=== PATIENT | male | born 1950 | race Hispanic/Latino ===

== ENCOUNTER 2016-04-09 11:08 | Inpatient (IN) | payer MEDICARE ==
[~2016-04-09] VITALS: Ht 170.2 cm; Wt 72.7 kg
[2016-04-09] VITALS (13 sets, daily range): BP systolic 100–210; BP diastolic 79–129; PULSE 79–124; RESP 18–34; O2SAT 91–100
--- NOTE | 2016-04-09 11:18 | ED.REPORT ---
HPI-General Illness Date of Service Apr 09, 2016 ED Provider: Dr. John 65 year old male with a hx of COPD, current every day smoker and HTN presents to the ED via EMS due to severe SOB since this morning. EMS noted the patient to be wheezing and 86% on RA. He was given a DuoNeb and albuterol en route. He was started on supplemental oxygen. He was noted to be hypertensive, tachycardic and tachypneic en route. At home the patient has daily nebs and a rescue inhaler. Pt complains of a cough/chills for 3 days. He has also recently had diarrhea. Nursing Notes Stated Complaint: SHORTNESS OF BREATH Nursing Notes Reviewed: Yes Allergies: Coded Allergies: No Known Allergies (Unverified , 04/09/16) Scheduled Budesonide/Formoterol 160-4.5 mcg Inh (Symbicort 160-4.5 mcg Inh) 120 Puff Inhaler 2 PUFF INHALATION BID Bupropion ER (Bupropion ER) 150 Mg Tablet.er 150 MG PO BID Fluticasone Propionate (Flonase Allergy Relief) 50 Mcg/Actuation [place].susp 1 SPRAY NA DAILY Guaifenesin (Guaifenesin ER) 600 Mg Tab.er.12h 600 MG PO BID Hydrochlorothiazide (Hydrochlorothiazide) 25 Mg Tablet 25 MG PO DAILY Lisinopril (Lisinopril) 10 Mg Tablet 10 MG PO DAILY Omeprazole Magnesium (Prilosec Otc) 20 Mg Tablet.dr 20 MG PO BIDAC Tiotropium [place] (Spiriva) 18 Mcg Cap.w.dev 18 MCG IH DAILY Scheduled PRN Albuterol HFA (Proair HFA) 8.5 Gm Hfa.aer.ad 2 PUFFS INHALATION Q4-6H PRN PRN For Shortness of Breath Albuterol Neb Soln (Albuterol Neb Soln) 2.5 Mg/3 Ml Vial.neb 2.5 MG NEB Q2H PRN PRN For Shortness of Breath Clobetasol Propionate/Emoll (Clobetasol Emollient 0.05% Crm) 15 Gm Cream..g. 1 APPL TOP BID PRN PRN psoriasis Oxycodone (Roxicodone) 5 Mg Tablet 5 MG PO Q4-6H PRN PRN For Pain General Time Seen by MD: 11:15 Chief Complaint Breathing problem Hx Obtained From: Patient, EMS Arrived By: Ambulance Onset Occurred: 9 - 12 hours ago Symptom Duration: Since onset Severity: Current: No pain currently Associated with: Reports: Shortness of breath, Denies: Vomiting Pertinent Negative: Relieved by nothing Context Related History: Reports COPD Similar Sx Previous: Yes Past Medical History Past Medical History COPD Psoriasis Reports: Hypertension Past Surgical History None reported Smoking History Current Every Day Smoker Ambulatory Status Independent Review of Systems Full Review of Systems Constitutional: Reports: Chills Respiratory: Reports: Non-productive cough, Shortness of breath, Wheezing GI: Reports: Diarrhea, Denies: Vomiting Skin: Denies Rash Neurologic: Denies: Change LOC Complete sys rev & neg: except as marked. Physical Exam Vital Signs Vital Signs Date Time Temp Pulse Resp B/P Pulse Ox O2 Delivery O2 Flow Rate FiO2 04/09/16 12:43 111 23 149/86 92 Room Air 04/09/16 12:17 110 26 158/79 94 Room Air 04/09/16 11:30 122 34 99 Aerosol Mask 8 04/09/16 11:13 37.2 124 26 168/111 100 Simple Mask Initial VS: Reviewed General/Constitutional: Well-developed, Well-nourished Head / Eyes: Atraumatic, Normocephalic, PERRL ENT: Conjunctiva normal, No scleral icterus Neck: Full range of motion Cardiovascular: Regular rate & rhythm, Heart sounds normal, Intact distal pulses Abdomen / GI: Soft, Non-tender, No distention Extremities: Vascular intact, Neuro intact, No swelling (At calves), No tenderness (At calves) Skin: Warm, Dry, No cyanosis Neurologic: Alert, Oriented, Nonfocal Psychiatric: Mood/affect normal, Behavior normal, Normal thought content General/Constitutional: Awake, Alert Wheezing / Retractions: Positive: Prolonged exp phase In respiratory distress. Satting in low 90's on supplemental oxygen. Poor air movement in all lung marley. prolonged expiratory phase and wheezing. Cardiovascular: Heart rate NL, Regular rhythm, Heart sounds NL, Cap refill not delayed, Peripheral circulation NL Interpretation & Diagnostics Lab Results Interpretation Result Diagram: 04/09/16 1121 04/09/16 1121 Test 04/09/16 11:21 White Blood Count 7.1th/mm3 (3.8-10.1) Red Blood Count 5.23mil/mm3 (4.40-5.80) Hemoglobin 15.8g/dL (13.8-17.2) Hematocrit 46.7% (41.0-50.0) Mean Corpuscular Volume 89.3fL (81-100) Mean Corpuscular Hemoglobin 30.2pg (27.0-35.0) Mean Corpuscular Hemoglobin Concent 33.8% (32.0-37.0) Red Cell Distribution Width 12.8% (12.3-15.4) Platelet Count 129bil/L (150-400) Neutrophils (%) (Auto) 76.9% (40-74) Lymphocytes (%) (Auto) 9.4% (14-46) Monocytes (%) (Auto) 13.0% (4-12) Eosinophils (%) (Auto) 0% (0-5) Basophils (%) (Auto) 0.4% (0-3) Sodium Level 124mEq/L (134-144) Potassium Level 4.5mEq/L (3.5-5.2) Chloride Level 84mEq/L (97-108) Carbon Dioxide Level 23mmol/L (18-29) Blood Urea Nitrogen 13mg/dL (8-27) Creatinine 0.90mg/dL (0.76-1.27) Estimat Glomerular Filtration Rate 90mL/min (>59) Glucose Level 131mg/dL (60-99) Calcium Level 9.2mg/dL (8.5-10.1) Total Bilirubin 0.9mg/dL (0.0-1.2) Aspartate Amino Transf (AST/SGOT) 180U/L (0-50) Alanine Aminotransferase (ALT/SGPT) 90U/L (0-44) Alkaline Phosphatase 110U/L (25-160) Troponin T < 0.010ug/L (0.0-0.011) Pro-B-Type Natriuretic Peptide 301.6pg/mL (0-210) Total Protein 8.5g/dL (6.4-8.4) Albumin 4.0g/dL (3.4-5.0) Hold Oliveros Top Tube Received (Received) General Lab Results Interp 1: Labs reviewed X-Ray Chest Interpretation Chest Xray Interpretation: IMPRESSION: Large lung volumes bilaterally, COPD. No pneumothorax or pneumonia is found. Dictated by: Vijay Borja M.D. on 04/09/2016 at 11:46 View: Portable, 1 view Interpretation / Wet Read by: Interpret - Radiologist Re-Eval/Medical Decision Med Decision/Clinical Course 65 year old male with a hx of COPD, current every day smoker and HTN presents to the ED via EMS due to severe SOB since this morning. EMS noted the patient to be wheezing and 86% on RA. Upon arrival the patient's tachypnea with increased work of breathing, scattered expiratory wheezing and a general respiratory distress requiring oxygen. The patient was treated with the below medications: 2 DuoNebs 125 methylprednisone 2 L IV fluid bolus The patient was reevaluated thereafter with improvement in his symptoms. He had oxygen saturation of 91% on room air. Labs CBC unremarkable Na+ 124 BNP not significantly elevated mildly elevated transaminases Negative troponin Flu Positive Chest x-ray with no focal pneumonia, changes c/w COPD The patient's overall presentation is most consistent with severe COPD exacerbation in setting of ongoing smoking and influenza. I see no focal pneumonia. His presentation and history is not suggestive of acute coronary syndrome or pulmonary embolism. There are no findings suggestive of pulmonary edema. The patient will require admission for further management of his respiratory complaints. The patient was discussed with the hospitalist service and admitted for further management. Transferred in stable condition. Source of Hx: Old records Time of Eval: 13:13 Re-Evaluation/Progress Note: Updated pt of labs and imaging results. Recommended admission. Pt understands and agrees with plan. All questions addressed. Consultation : Referral / Consult Name: Sp Phillips Consulted With: Hospitalist Call Returned at: 12:35 Appliance Mechanic: Will see patient, Agrees with eval, Agrees with plan, Accepts admit Counseled Regarding: Diagnosis, Lab results, Need for admission Discharge & Departure Primary Impression: COPD exacerbation Additional Impressions: Respiratory distress Hypoxia Influenza Disposition: ADMITTED TO HOSPITAL Discharge Condition All VS Reviewed: Yes Referrals: Red Sawant MD (PCP) Crit Care Except Billable Proc Time Spent: 105-134 minutes Services Performed: Patient management by me, Time spent at bedside, Reviewing test results, Reviewing imaging, Discussing patient care, Documentation in record, Time with fam/surrogate Scribe Attestation Portions of this note were transcribed by Karlee Teague. I, (Dr. John) personally performed the history, physical exam and medical decision-making; I reviewed and confirmed the accuracy of the information in the transcribed note. Signed by: Karlee Teague. 04/08/2016, 1312 copies to: Red Sawant MD, Beck O MD Apr 09, 2016 11:17 Karlee Teague Apr 09, 2016 13:23
[2016-04-09] MEDS ORDERED: Albuterol-Ipratropium 3 mL Inhalation Solution NEB ONE (11:20)
[2016-04-09] MEDS ORDERED: MethylprednisoLONE Sodium Succinate 62.5 mg/mL 2 mL Inj IVPUSH ONE (11:20)
[2016-04-09] MEDS ORDERED: Albuterol-Ipratropium 3 mL Inhalation Solution NEB SCH (11:20)
[2016-04-09] MEDS ORDERED: 0.9% Sodium Chloride 1,000 ML IV ONE ×2 (11:20→16:15)
[2016-04-09 11:30] LABS: BASOPHILS % (AUTO) 0.4 % (0-3); EOSINOPHILS % (AUTO) 0 % (0-5); Mean Corpuscular Hemoglobin 30.2 pg (27.0-35.0); Mean Corpuscular Volume 89.3 fL (81-100); NEUTROPHILS % (AUTO) 76.9 % (40-74); Platelet Count 129 bil/L (150-400)
--- NOTE | 2016-04-09 11:48 | DRSVH ---
PROCEDURE: X-RAY CHEST ONE VIEW, PORTABLE ([id number]) INDICATIONS: sob TECHNIQUE: One view of the chest was acquired. COMPARISON: [facility], , CHEST 2VW, 05/15/2013, 10:29. FINDINGS: Surgical changes and devices: None. Lungs and pleura: No pleural effusions or pneumothorax. Lungs are abnormal with prominent pulmonary hyperexpansion consistent with underlying COPD. Mediastinum: Mediastinal contours appear normal. Heart size is normal. Bones and chest wall: No suspicious bony lesions. Overlying soft tissues appear unremarkable. IMPRESSION: Large lung volumes bilaterally, COPD. No pneumothorax or pneumonia is found. Dictated by: Vijay Borja M.D. on 04/09/2016 at 11:46 Approved by: Vijay Borja M.D. on 04/09/2016 at 11:46
[2016-04-09 12:07] LABS: TROPONIN T < 0.010 ug/L (0.0-0.011)
[2016-04-09] MEDS ORDERED: Alum-Mag Hydrox-Simeth 30 mL Suspension PO PRN ×2 (12:15→16:10)
[2016-04-09] MEDS ORDERED: Ondansetron 2 mg/mL 2 mL Inj IVPUSH PRN ×2 (12:15→16:10)
--- NOTE | 2016-04-09 14:07 | NUR ---
Admit: Patient arrived to [facility] via stretcher @ approx 1340. Patient ambulated from stretcher to bed. Stand up weight obtained. Patient alert & oriented. BP 180/119, paged and notified. No new orders received. C/O HYLTON and cough. Patient states he does not take Tylenol due to history of Hep C. O2 2.5L 96%. Telemetry order received, box #52. Bed in low and locked position, bed rails up x 2. Oriented to room and call light system.
[2016-04-09] MEDS ORDERED: LISI10TA PO (14:30)
[2016-04-09] MEDS ORDERED: CLOB15CR3 TOP (14:30)
[2016-04-09] MEDS ORDERED: ALBU8.5H2 INHALATION (14:52)
[2016-04-09] MEDS ORDERED: GUAI600T86 PO (14:52)
[2016-04-09] MEDS ORDERED: HYDR25TA4 PO (14:52)
[2016-04-09] MEDS ORDERED: OXYC-474 PO (14:52)
[2016-04-09] MEDS ORDERED: OMEP20TA24 PO (14:52)
[2016-04-09] MEDS ORDERED: TIOT18CA3 IH (14:52)
[2016-04-09] MEDS ORDERED: FLUT9.9S (14:52)
[2016-04-09] MEDS ORDERED: SYMINH INHALATION (14:52)
[2016-04-09] MEDS ORDERED: BUPR150T12 PO (14:52)
[2016-04-09] MEDS ORDERED: ALBU2.5V4 NEB (14:52)
[2016-04-09] MEDS ORDERED: Polyethylene Glycol (PEG) 17 Gm Powder PO PRN (16:10)
[2016-04-09] MEDS: Heparin 5,000 Unit/mL Inj SUBQ SCH (16:44)
--- NOTE | 2016-04-09 16:48 | PCM.HPMED ---
Subjective Date of Service Apr 09, 2016 Primary Provider: Admitting Physician: Sp Phillips Primary Care Physician: Red Sawant MD Attending Physician: Sp Phillips Chief Complaint: SOB, weakness History of Present Illness: 65 year old male with history of COPD/emphysema, active smoker, meth user, alcohol abuse and medication non-compliance presents with report of 3 days of acute generalized weakness, body aches, productive cough, chills and worsening shortness of breath. On presentation to ED he was reported to be in respiratory distress but after receiving IV Solu-Medrol and DuoNeb his breathing significantly improved. Workup in ED is also notable for positive Flu A. Review of Systems: Constitutional: Negative, except as otherwise mentioned in the history above. Ophthalmologic: Negative, except as otherwise mentioned in the history above. Cardiovascular: Negative, except as otherwise mentioned in the history above. Respiratory: Negative, except as otherwise mentioned in the history above. Gastrointestinal: Negative, except as otherwise mentioned in the history above. Genitourinary: Negative, except as otherwise mentioned in the history above. Musculoskeletal: Negative, except as otherwise mentioned in the history above. Neurological: Negative, except as otherwise mentioned in the history above. Psychiatric: Negative, except as otherwise mentioned in the history above. Hematologic/Lymphatic: Negative, except as otherwise mentioned in the history above. Allergic/Immunologic: Negative, except as otherwise mentioned in the history above. Allergies Coded Allergies: No Known Allergies (Unverified , 04/09/16) Home Medications Albuterol HFA 8.5 Gm Hfa.Aer.Ad (Proair HFA) 2 Puffs INHALATION Q4-6H PRN PRN For Shortness of Breath PRN For Shortness of Breath Albuterol Neb Soln 2.5 Mg/3 Ml Vial.Neb 2.5 Mg NEB Q2H PRN PRN For Shortness of Breath PRN For Shortness of Breath Tiotropium [place] 18 Mcg Cap.W.Dev (Spiriva) 18 Mcg IH DAILY Lisinopril 10 Mg Tablet 10 Mg PO DAILY Bupropion ER 150 Mg Tablet.Er 150 Mg PO BID Ref 0 Oxycodone 5 Mg Tablet (Roxicodone) 5 Mg PO Q4-6H PRN PRN For Pain PRN For Pain Hydrochlorothiazide 25 Mg Tablet 25 Mg PO DAILY Budesonide/Formoterol 160-4.5 mcg Inh 120 Puff Inhaler (Symbicort 160-4.5 mcg Inh) 2 Puff INHALATION BID Guaifenesin 600 Mg Tab.Er.12h (Guaifenesin ER) 600 Mg PO BID Reported Fluticasone Propionate 50 Mcg/Actuation [place].Susp (Flonase Allergy Relief) 1 [place] NA DAILY Omeprazole Magnesium 20 Mg Tablet.Dr (Prilosec Otc) 20 Mg PO BIDAC Clobetasol Propionate/Emoll 15 Gm Cream..G. (Clobetasol Emollient 0.05% Crm) 1 Appl TOP BID PRN PRN psoriasis PRN psoriasis Exam Result Diagram: 04/09/16 1121 04/09/16 1121 PMH 1. COPD/Emphysema 2. Hypertension 3. GERD 4. Obesity 5. Hepatitis C 6. Distant history of IV drug use (meth) now says only snorts or takes PO Family History Mother with diabetes. Father had heart problem in his 80's Social History Hx Alcohol Use: Yes (6 pack 12-oz beers) Alcoholic Drinks Per Day: 6 beers/day Hx Substance Use: Yes (snorts meth, marijuana) Smoking Status: Current Every Day Smoker (one pack every 3 days) Exam Vital Signs Vital Sign - Last Date Time Temp Pulse Resp B/P Pulse Ox O2 Delivery O2 Flow Rate FiO2 04/09/16 14:28 104 04/09/16 13:50 172/97 04/09/16 13:45 37.0 19 96 Nasal Cannula 2.50 General: Alert, Oriented X3, Cooperative Head: Normal Eyes: PERRLA, EOMI, Scleral Anicteric Nose: Mucous Membr Moist/[place] Mouth: Mucous Membr Moist/[place] Neck: Supple Chest & Lungs: Chest Wall Normal, Clear to auscultation & percussion Cardiovascular: Regular Rate/Rhythm Pulses: NL carotid, radial, femoral, DP, PT Abdomen: Non-tender, Non-distended, Normoactive bowel tones, Soft Extremities: No cyanosis/clubbing/edma bilat Skin: Other (scratch oseguera noted on arms bilat) Neurological: Grossly Neurologically Intact, Normal Speech Lymphatic: Other Lymph Nodes (no lymphadenopathy) Lab and Diagnostics Result Diagram: 04/09/16 1121 04/09/16 1121 X-Rays, CTs and MRIs Date of Service: 04/09/16 1118 PROCEDURE: X-RAY CHEST ONE VIEW, PORTABLE ([id number]) IMPRESSION: Large lung volumes bilaterally, COPD. No pneumothorax or pneumonia is found. Dictated by: Vijay Borja M.D. on 04/09/2016 at 11:46 Approved by: Vijay Borja M.D. on 04/09/2016 at 11:46 Assessment & Plan 65 year old male with history of COPD/emphysema, active smoker, meth user, alcohol abuse and medication non-compliance presents with report of 3 days of acute generalized weakness, body aches, productive cough, chills and worsening shortness of breath. # Acute COPD exacerbation, likely brought on by acute Flu A, poa. ongoing - no significant wheezing on exam so will not continue steroids at this time - c/w DuoNeb qid while awake and Albuterol prn - c/w home inhalers as well - c/w supportive care and O2 NC # Acute Flu A - start Tamiflu x 10 days # Hyponatremia, presumed acute, poa. likely pre-renal and due to meds (Hctz) - hold HCTZ - gentle IVF - f/u BMP # Elevated transaminases consistent with history of alcohol abuse - f/u # Histor of alcohol abuse - denies any history of withdrawals or seizures before - currently no evidence of withdrawal - f/u on CIVT protocol # Hypertension, chronic. poorly controlled - c/w home dose Lisinopril - cover with prn IV Hydralazine for now # History of Hep C - says finished course of treatment in the past - further f/u by PCP and GI as outpatient # History of Meth use - c/w supportive care # History of tobacco use - pt advised about quitting - nicotine patch daily prn Expected length of hospital stay is greater than 2 midnights and likely 2-3 days GI Prophylaxis: Proton Pump Inhibitor VTE Prophylaxis: Sub-Q Heparin (Unfractionated) Resuscitation Status: CPR: Attempt Resuscitation (discusse and verified with the patient) Time spent 60 min Sp Phillips Apr 09, 2016 16:48
[2016-04-09] MEDS: hydrALAZINE 20 mg/mL Inj IV PRN (16:51)
--- NOTE | 2016-04-09 16:53 | NUR ---
Blood Pressure: BP 201/120. IV Hydralazine 10mg administered. child development specialist called pharmacy to send Lisinopril MARQUIS. Awaiting Lisinopril PO from Pharmacy. SR 90s per tele marketing executive. Patient diaphoretic and nauseous. Will continue to follow. Addendum: 04/09/16 at 1800 by LUIS CHRISTENSEN RN Recheck of BP approx 45 min post Hydralazine administration, 181/85 HR 101, and O2 Sat 96% 2L oxygen NC. Will continue to follow and report to [facility].
[2016-04-09] MEDS: Pantoprazole 20 mg ER24 Tablet PO SCH (17:30)
[2016-04-09] MEDS: Multivit-Miner-Folic Acid-Iron Tablet PO SCH (17:30)
--- NOTE | 2016-04-09 17:34 | NUR ---
HYLTON: Complained of HYLTON 8/10 on pain scale. Morphine IV administered. Will follow. Addendum: 04/09/16 at 1804 by LUIS CHRISTENSEN RN On reassessment of HYLTON, patient states 0/10 on pain scale.
--- NOTE | 2016-04-09 18:05 | NUR ---
Respiratory: Patient complains of shortness of breath. Patient sitting upright, pursed lip breathing, TECHNICAL SERVICE SPECIALIST in place O2 saturation 98% 2L oxygen via NC, fan turned on in room. Will continue to monitor for comfort.
[2016-04-09] MEDS: Albuterol-Ipratropium 3 mL Inhalation Solution NEB SCH (20:17)
[2016-04-09] MEDS: Fluticasone-Salmererol 250-50 Inhaler INHALATION SCH (20:40)
[2016-04-09] MEDS: buPROPion SR 150 mg ER12 Tablet PO SCH (20:40)
[2016-04-10] VITALS (17 sets, daily range): BP systolic 155–211; BP diastolic 72–115; PULSE 74–120; RESP 18–26; O2SAT 85–98
[2016-04-10] MEDS: Heparin 5,000 Unit/mL Inj SUBQ SCH ×3 (00:56→17:09)
[2016-04-10] MEDS: hydrALAZINE 20 mg/mL Inj IV PRN ×2 (01:04→10:04)
[2016-04-10] MEDS: Albuterol-Ipratropium 3 mL Inhalation Solution NEB SCH ×4 (06:00→20:50)
[2016-04-10 06:06] LABS: BASOPHILS % (AUTO) 0 % (0-3); EOSINOPHILS % (AUTO) 0 % (0-5); MONOCYTES % (AUTO) 12.9 % (4-12); Mean Corpuscular Hemoglobin 30.5 pg (27.0-35.0); Mean Corpuscular Volume 90.3 fL (81-100); Platelet Count 130 bil/L (150-400)
[2016-04-10 06:22] LABS: Magnesium 2.3 mg/dL (1.6-2.6)
[2016-04-10 07:31] LABS: INR 1.12 ratio
[2016-04-10] MEDS ORDERED: Tiotropium 18mcg/Cap 5 Capsule Inhaler Kit INHALATION SCH (08:30)
[2016-04-10] MEDS: Albuterol 1.25 mg/3 mL Inhalation Solution NEB PRN ×2 (08:58→14:26)
[2016-04-10] MEDS: Fluticasone 0.05% 15 Spray/2 Gm 16 Gm Nasal Spray NASAL SCH (10:03)
[2016-04-10] MEDS: Fluticasone-Salmererol 250-50 Inhaler INHALATION SCH ×2 (10:03→19:51)
[2016-04-10] MEDS: Pantoprazole 20 mg ER24 Tablet PO SCH ×2 (10:04→17:09)
[2016-04-10] MEDS: predniSONE 20 mg Tablet PO SCH (10:04)
[2016-04-10] MEDS: buPROPion SR 150 mg ER12 Tablet PO SCH ×2 (10:04→19:52)
[2016-04-10] MEDS: Multivit-Miner-Folic Acid-Iron Tablet PO SCH (10:04)
--- NOTE | 2016-04-10 11:12 | NUR ---
HYLTON: Patient complained of HYLTON 7/10 on pain scale. Morphine IV administered. On reassessment, patient states HYLTON 0/10 on pain scale.
--- NOTE | 2016-04-10 12:54 | NUR ---
Blood Pressure: AM BP 211/95, Hydralazine IV administered. Recheck of BP 185/115. paged @ [phone]. Addendum: 04/10/16 at 1714 by LUIS CHRISTENSEN RN Order received for additional dose of Lisinopril. Lisinopril administered. Repeat BP 157/107.
--- NOTE | 2016-04-10 13:52 | PCM.PNMED ---
Subjective Date of Service Apr 10, 2016 Subjective says feeling a little better today Exam Vital Signs Vital Sign - Last Date Time Temp Pulse Resp B/P Pulse Ox O2 Delivery O2 Flow Rate FiO2 04/10/16 12:14 36.3 110 20 180/115 95 Room Air 04/10/16 06:07 2.00 Intake and Output 04/09/16 04/09/16 04/10/16 Cumulative From/Thru 15:00 23:00 07:00 04/09/16 11:13 - 04/10/16 06:21 Intake Total 1000 ml 473 ml 250 ml 1723 ml Output Total 200 ml 700 ml 900 ml Balance 1000 ml 273 ml -450 ml 823 ml Intake Oral 473 ml 250 ml 723 ml IV Total 1000 ml 1000 ml Output Urine Total 200 ml 700 ml 900 ml # Voids 1 1 # Bowel Movements 0 1 1 General: Alert, Cooperative, No Acute Distress Eyes: Scleral Anicteric Mouth: Mucous Membr Moist/[place] Neck: Supple Chest & Lungs: Chest Wall Normal, Other (bilat insp and exp wheezes (moderate)) Cardiovascular: Regular Rate/Rhythm Abdomen: Non-tender, Non-distended, Normoactive bowel tones Extremities: No cyanosis/clubbing/edma bilat Neurological: Grossly Neurologically Intact, Normal Speech IVs and Medications Medications Reviewed: Medications were reviewed in detail Lab and Diagnostics Result Diagram: 04/10/16 0500 04/10/16 0500 X-Rays, CTs and MRIs Date of Service: 04/09/16 1118 PROCEDURE: X-RAY CHEST ONE VIEW, PORTABLE ([id number]) IMPRESSION: Large lung volumes bilaterally, COPD. No pneumothorax or pneumonia is found. Dictated by: Vijay Borja M.D. on 04/09/2016 at 11:46 Approved by: Vijay Borja M.D. on 04/09/2016 at 11:46 Assessment & Plan 65 year old male with history of COPD/emphysema, active smoker, meth user, alcohol abuse and medication non-compliance presents with report of 3 days of acute generalized weakness, body aches, productive cough, chills and worsening shortness of breath. # Acute COPD exacerbation, likely brought on by acute Flu A, poa. ongoing - has new and moderate wheezing on exam today. will start Prednisone 40 daily - c/w DuoNeb qid while awake and Albuterol prn - c/w supportive care and O2 NC # Acute Flu A - c/w Tamiflu x 10 days # Hyponatremia, presumed acute, poa. likely pre-renal and due to meds (Hctz). improving with IVF - hold HCTZ - c/w gentle IVF - f/u BMP # Elevated transaminases consistent with history of alcohol abuse - f/u # Histor of alcohol abuse - denies any history of withdrawals or seizures before - currently no evidence of withdrawal - f/u on CIHI protocol # Hypertension, chronic. poorly controlled - increase home dose of Lisinopril - cover with prn IV Hydralazine for now # History of Hep C - says finished course of treatment in the past - further f/u by PCP and GI as outpatient # History of Meth use - c/w supportive care # History of tobacco use - pt advised about quitting - nicotine patch daily prn Dispo: 1-2 days pending respiratory status GI Prophylaxis: Proton Pump Inhibitor VTE Prophylaxis: Sub-Q Heparin (Unfractionated) VTE Mechanical Devices: Intermittant Pneumatic CD Resuscitation Status: CPR: Attempt Resuscitation (discusse and verified with the patient) Sp Phillips Apr 10, 2016 13:52
[2016-04-11] VITALS (20 sets, daily range): BP systolic 120–222; BP diastolic 85–137; PULSE 82–110; RESP 18–26; O2SAT 93–98
[2016-04-11] MEDS: Heparin 5,000 Unit/mL Inj SUBQ SCH ×3 (00:45→17:16)
--- NOTE | 2016-04-11 01:00 | NUR ---
HTN BP of 179/111 taken at 2052 by STRIP TANK TENDER. Evening medications administered, recheck BP shortly after - new reading at 155/108. 2052 BP reading at 173/111 by STRIP TANK TENDER. Administered PRN IV Hydralazine. Rechecked BP at 150/85. Addendum: 04/11/16 at 0436 by MOJGAN VIEYRA RN Elevated BP of 222/131 per STRIP TANK TENDER. Pt reports 01/25 Headache pain, administered Morphine PRN. BP reduced to 150/100. MD green.
[2016-04-11] MEDS: hydrALAZINE 20 mg/mL Inj IV PRN ×2 (01:17→12:02)
[2016-04-11] MEDS: Albuterol-Ipratropium 3 mL Inhalation Solution NEB SCH ×3 (04:26→16:21)
--- NOTE | 2016-04-11 05:15 | NUR ---
CIWA Pt awakened at night with elevated BP, see HTN note, sweating, SOB, 10/10 headache, hearing ringing in ears and eyes burning. CIWA scored at 14. Administered 5mg Valium IV per protocol. Medication effective, Pt currently sleeping. Continuing to monitor.
[2016-04-11] MEDS: Pantoprazole 20 mg ER24 Tablet PO SCH ×2 (07:57→17:16)
[2016-04-11] MEDS: Fluticasone 0.05% 15 Spray/2 Gm 16 Gm Nasal Spray NASAL SCH (07:57)
[2016-04-11] MEDS: predniSONE 20 mg Tablet PO SCH (07:57)
[2016-04-11] MEDS: buPROPion SR 150 mg ER12 Tablet PO SCH ×2 (07:57→20:24)
[2016-04-11] MEDS: Multivit-Miner-Folic Acid-Iron Tablet PO SCH (07:57)
[2016-04-11] MEDS: Fluticasone-Salmererol 250-50 Inhaler INHALATION SCH ×2 (08:19→20:23)
--- NOTE | 2016-04-11 12:36 | PCM.PNMED ---
Subjective Date of Service Apr 11, 2016 Subjective - Pt seen and examined this morning. - Still c/o shortness of breath. On NC 2: O2, SpO2: 95% Exam Vital Signs Vital Sign - Last Date Time Temp Pulse Resp B/P Pulse Ox O2 Delivery O2 Flow Rate FiO2 04/11/16 12:05 101 20 181/137 93 Room Air 04/11/16 09:03 36.9 04/11/16 04:34 2.00 Intake and Output 04/10/16 04/10/16 04/11/16 Cumulative From/Thru 15:00 23:00 07:00 04/09/16 11:13 - 04/11/16 06:17 Intake Total 697 ml 400 ml 2820 ml Output Total 1000 ml 1900 ml Balance 697 ml -600 ml 920 ml Intake Oral 400 ml 1123 ml IV Total 697 ml 1697 ml Output Urine Total 1000 ml 1900 ml # Voids 1 # Bowel Movements 0 1 Exam General: Alert, Cooperative, No Acute Distress Eyes: Scleral Anicteric Mouth: Mucous Membr Moist/[place] Neck: Supple Chest & Lungs: Chest Wall Normal, Other (bilat insp and exp wheezes (moderate)) Cardiovascular: Regular Rate/Rhythm Abdomen: Non-tender, Non-distended, Normoactive bowel tones Extremities: No cyanosis/clubbing/edma bilat Neurological: Grossly Neurologically Intact, Normal Speech IVs and Medications Medications Reviewed: Medications were reviewed in detail Lab and Diagnostics Result Diagram: 04/10/16 0500 04/11/16 0500 X-Rays, CTs and MRIs Date of Service: 04/09/16 1118 PROCEDURE: X-RAY CHEST ONE VIEW, PORTABLE ([id number]) IMPRESSION: Large lung volumes bilaterally, COPD. No pneumothorax or pneumonia is found. Dictated by: Vijay Borja M.D. on 04/09/2016 at 11:46 Approved by: Vijay Borja M.D. on 04/09/2016 at 11:46 Assessment & Plan 65 year old male with history of COPD/emphysema, active smoker, meth user, alcohol abuse and medication non-compliance presents with report of 3 days of acute generalized weakness, body aches, productive cough, chills and worsening shortness of breath. # Acute COPD exacerbation, likely brought on by acute Flu A, poa. ongoing - has new and moderate wheezing on exam today. will start Prednisone 40 daily - c/w DuoNeb qid while awake and Albuterol prn - c/w supportive care and O2 NC # Acute Flu A - c/w Tamiflu x 10 days. Day 3 # Hyponatremia, presumed acute, poa. likely pre-renal and due to meds (Hctz). improving with IVF - hold HCTZ - c/w gentle IVF - Now resolved - f/u BMP # Elevated transaminases consistent with history of alcohol abuse - f/u # History of alcohol abuse - denies any history of withdrawals or seizures - currently no evidence of withdrawal - f/u on CIWA protocol - CIWA this mornin # Hypertension, chronic. poorly controlled - increase home dose of Lisinopril - cover with prn IV Hydralazine for now # History of Hep C - says finished course of treatment in the past - further f/u by PCP and GI as outpatient # History of Meth use - c/w supportive care # History of tobacco use - pt advised about quitting - nicotine patch daily prn Dispo: 1-2 days pending respiratory status GI Prophylaxis: Proton Pump Inhibitor VTE Prophylaxis: Sub-Q Heparin (Unfractionated) VTE Mechanical Devices: Intermittant Pneumatic CD Resuscitation Status: CPR: Attempt Resuscitation (discusse and verified with the patient) Ubaldo Mckinney MD Apr 11, 2016 12:36
[2016-04-11] MEDS: Albuterol 1.25 mg/3 mL Inhalation Solution NEB PRN (13:05)
--- NOTE | 2016-04-11 13:15 | NUR ---
hypertension pts was asymptomatic with BP of 181/137 and pulse of 101. Administered 10mg IVP hydralazine. reassessed and BP decreased to 159/93 with pulse of 102. continue to monitor. MD aware Addendum: 04/11/16 at 1521 by JEFF VASQUEZ RN Pts BP went back up to 174/113 and was asymptomatic. Notified . said that to let him know if bp is > 200/120. continue to monitor
--- NOTE | 2016-04-11 13:39 | NUR ---
Social Work: Initial Assessment Data: Pt is a 65 y/o male admitted for COPD exacerbation, hypoxia, resp distress. Pt's PCP is Dr Sawant, pt's insurance is Medicare. EMR reviewed, per H&P, pt has a history of alcohol, meth, and marijuana. EMAIL ADMINISTRATOR met with pt at bedside, pt's family was in the room, role explained. Pt states that he lives alone in a single story home where he uses no DME besides a nebulizer. Pt reports that he does not have a DPOA and refused information. Pt states that he drives, has no HH or SNF history, no LTC insurance, no VA benefits, and is not a caregiver for another. Pt states that he is interested in HH and stated that if it is needed he would choose [facility]. EMAIL ADMINISTRATOR will continue to follow to R/O possible HH need. CD assessment not appropriate at this time due to pt's sister and nephew in the room. EMAIL ADMINISTRATOR will attempt at a later time. Assessment: Pt who is independent at baseline. Plan: Pt will d/c home via POV when medically stable. EMAIL ADMINISTRATOR will continue to follow to R/O possible HH need. EMAIL ADMINISTRATOR will attempt CD assessment when family is not in the room. SARA Shen Addendum: 04/11/16 at 1349 by LUCI GIBBONS Amended: Links added.
--- NOTE | 2016-04-11 13:50 | NUR ---
MIGEL signed Verbal permission to sign by pt. SARA Shen
--- NOTE | 2016-04-11 14:42 | NUR ---
Social Work: Brief Note Data: Pt called JAILOR and requested JAILOR call [facility] for information on [facility] Medicaid. JAILOR called [facility] at [phone] and left a message requesting they meet with pt before discharge. SARA Shen
[2016-04-12] VITALS (14 sets, daily range): BP systolic 134–192; BP diastolic 84–117; PULSE 75–116; RESP 16–20; O2SAT 91–97
[2016-04-12] MEDS: Heparin 5,000 Unit/mL Inj SUBQ SCH ×3 (00:23→16:56)
[2016-04-12 06:20] LABS: BASOPHILS % (AUTO) 0.4 % (0-3); EOSINOPHILS % (AUTO) 0.1 % (0-5); MONOCYTES % (AUTO) 13.4 % (4-12); Mean Corpuscular Hemoglobin 30.4 pg (27.0-35.0); Platelet Count 141 bil/L (150-400)
[2016-04-12] MEDS: Albuterol-Ipratropium 3 mL Inhalation Solution NEB SCH ×5 (06:30→21:00)
--- NOTE | 2016-04-12 06:39 | NUR ---
HTN RETAIL AGENT reported BP of 185/117 with a HR of 91 around 0615. Assessed pt, reporting a strong headache of 8/10. PRN Morphine given, VS 5 min later - BP 140/110 and HR of 89.
[2016-04-12] MEDS: Pantoprazole 20 mg ER24 Tablet PO SCH ×2 (08:58→16:55)
[2016-04-12] MEDS: Multivit-Miner-Folic Acid-Iron Tablet PO SCH (08:58)
[2016-04-12] MEDS: predniSONE 20 mg Tablet PO SCH (08:58)
[2016-04-12] MEDS: buPROPion SR 150 mg ER12 Tablet PO SCH ×2 (09:00→19:47)
[2016-04-12] MEDS: Fluticasone-Salmererol 250-50 Inhaler INHALATION SCH ×2 (09:42→19:46)
[2016-04-12] MEDS: Fluticasone 0.05% 15 Spray/2 Gm 16 Gm Nasal Spray NASAL SCH (09:42)
[2016-04-12] MEDS: hydrALAZINE 20 mg/mL Inj IV PRN (09:57)
--- NOTE | 2016-04-12 11:09 | PCM.PNMED ---
Subjective Date of Service Apr 12, 2016 Subjective - Pt seen and examined this morning. - States that he is doing better then yesterday. Exam Vital Signs Vital Sign - Last Date Time Temp Pulse Resp B/P Pulse Ox O2 Delivery O2 Flow Rate FiO2 04/12/16 10:16 110 04/12/16 09:35 36.7 16 192/110 94 Room Air 04/12/16 06:00 1.00 Intake and Output 04/11/16 04/11/16 04/12/16 Cumulative From/Thru 15:00 23:00 07:00 04/09/16 11:13 - 04/12/16 00:38 Intake Total 1040 ml 3860 ml Output Total 600 ml 2500 ml Balance 440 ml 1360 ml Intake Oral 1040 ml 2163 ml IV Total 1697 ml Output Urine Total 600 ml 2500 ml # Voids 1 # Bowel Movements 0 1 Exam General: Alert, Cooperative, No Acute Distress Eyes: Scleral Anicteric Mouth: Mucous Membr Moist/[place] Neck: Supple Chest & Lungs: Chest Wall Normal, Other (bilat insp and exp wheezes (moderate)) Cardiovascular: Regular Rate/Rhythm Abdomen: Non-tender, Non-distended, Normoactive bowel tones Extremities: No cyanosis/clubbing/edma bilat Neurological: Grossly Neurologically Intact, Normal Speech IVs and Medications Medications Reviewed: Medications were reviewed in detail Lab and Diagnostics Result Diagram: 04/12/1652904/12/16529 X-Rays, CTs and MRIs Date of Service: 04/09/16 1118 PROCEDURE: X-RAY CHEST ONE VIEW, PORTABLE ([id number]) IMPRESSION: Large lung volumes bilaterally, COPD. No pneumothorax or pneumonia is found. Dictated by: Vijay Borja M.D. on 04/09/2016 at 11:46 Approved by: Vijay Borja M.D. on 04/09/2016 at 11:46 Assessment & Plan 65 year old male with history of COPD/emphysema, active smoker, meth user, alcohol abuse and medication non-compliance presents with report of 3 days of acute generalized weakness, body aches, productive cough, chills and worsening shortness of breath. # Acute COPD exacerbation, likely brought on by acute Flu A, poa. ongoing - has new and moderate wheezing on exam today. will start Prednisone 40 daily - c/w DuoNeb qid while awake and Albuterol prn - c/w supportive care and O2 NC # Acute Flu A - c/w Tamiflu x 10 days. Day 4 # Hyponatremia, presumed acute, poa. likely pre-renal and due to meds (Hctz). improving with IVF - hold HCTZ - Now resolved # Elevated transaminases consistent with history of alcohol abuse - f/u # History of alcohol abuse - denies any history of withdrawals or seizures - currently no evidence of withdrawal - [facility] - [facility] this [facility]in # Hypertension, chronic. poorly controlled - increase home dose of Lisinopril - cover with prn IV Hydralazine for now # History of Hep C - says finished course of treatment in the past - further f/u by PCP and GI as outpatient # History of Meth use - c/w supportive care # History of tobacco use - pt advised about quitting - nicotine patch daily prn Dispo: 1-2 days pending respiratory status GI Prophylaxis: Proton Pump Inhibitor VTE Prophylaxis: Sub-Q Heparin (Unfractionated) VTE Mechanical Devices: Intermittant Pneumatic CD Resuscitation Status: CPR: Attempt Resuscitation (discusse and verified with the patient) Ubaldo Mckinney MD Apr 12, 2016 11:09
--- NOTE | 2016-04-12 11:35 | NUR ---
Hypertension BP 192/110 HR of 102, pt asymptomatic, IV hydralazine given as ordered, BP recheck 180/110 HR of 98, Pt reports increased anxiety, sweating and SOB, IV diazepam given as ordered. BP recheck 171/110 102. paged and called back, no new orders, will continue to monitor. Addendum: 04/12/16 at 1430 by MARLA FERNANDEZ RN BP 180/110 HR of 116, pt reports is feeling anxious about BP control. notified, new order for PO Labetalol generated. Will continue to monitor.
[2016-04-13] VITALS (15 sets, daily range): BP systolic 149–180; BP diastolic 95–117; PULSE 76–103; RESP 18–24; O2SAT 91–98
[2016-04-13] MEDS: Heparin 5,000 Unit/mL Inj SUBQ SCH ×3 (00:05→16:43)
[2016-04-13] MEDS: Albuterol 1.25 mg/3 mL Inhalation Solution NEB PRN (00:31)
--- NOTE | 2016-04-13 05:00 | NUR ---
Respiratory: Pt reports shortness of breath with any activity; turning and sitting up in bed. Although he did sit up in the bed on his own, stating this was an improvement as he was not able to do that in the past days. On 2L oxygen mid s with CPOX on.
[2016-04-13 05:56] LABS: Mean Corpuscular Hemoglobin 30.4 pg (27.0-35.0); Mean Corpuscular Volume 92.6 fL (81-100)
[2016-04-13] MEDS: hydrALAZINE 20 mg/mL Inj IV PRN (06:40)
[2016-04-13] MEDS: Albuterol-Ipratropium 3 mL Inhalation Solution NEB SCH ×4 (07:10→21:00)
[2016-04-13] MEDS: Fluticasone-Salmererol 250-50 Inhaler INHALATION SCH ×2 (08:35→21:24)
[2016-04-13] MEDS: predniSONE 20 mg Tablet PO SCH (08:35)
[2016-04-13] MEDS: Fluticasone 0.05% 15 Spray/2 Gm 16 Gm Nasal Spray NASAL SCH (08:35)
[2016-04-13] MEDS: Pantoprazole 20 mg ER24 Tablet PO SCH ×2 (08:35→16:42)
[2016-04-13] MEDS: Multivit-Miner-Folic Acid-Iron Tablet PO SCH (08:35)
[2016-04-13] MEDS: buPROPion SR 150 mg ER12 Tablet PO SCH ×2 (08:36→21:24)
--- NOTE | 2016-04-13 11:27 | NUR ---
T/c from Sister-Social Work D/A: Pts sister Adriana called with concerns about projected d/c of tomorrow. Spoke with physician in multidisciplinary rounds. T/c back to sister to indicate there continues to be medical work-up with no anticipation of d/c until the patient is stable, which could still be 1-2 days. Sister seemed reassured. PLAN: Pts sister advocating for continual medical monitoring. Updated as to projected medical plan and encouraged family to ask physician further questions. Pt continues with SOB. ROOF TECHNICIAN to f/u for CD assessment. WARNER Alba
--- NOTE | 2016-04-13 12:22 | PCM.PNMED ---
Subjective Date of Service Apr 13, 2016 Subjective - Pt seen and examined this morning. - Still c/o shortness of breath. Denies any chest pain. - Will order chest x-ray to rule out infection. Exam Vital Signs Vital Sign - Last Date Time Temp Pulse Resp B/P Pulse Ox O2 Delivery O2 Flow Rate FiO2 04/13/16 11:35 94 20 92 Nasal Cannula 2.00 04/13/16 10:05 168/102 04/13/16 09:51 36.4 Intake and Output 04/12/16 04/12/16 04/13/16 Cumulative From/Thru 15:00 23:00 07:00 04/09/16 11:13 - 04/13/16 03:50 Intake Total 400 ml 1000 ml 5260 ml Output Total 500 ml 950 ml 3950 ml Balance -100 ml 50 ml 1310 ml Intake Oral 400 ml 1000 ml 3563 ml IV Total 1697 ml Output Urine Total 500 ml 950 ml 3950 ml # Voids 1 # Bowel Movements 0 0 1 Exam General: Alert, Cooperative, No Acute Distress Eyes: Scleral Anicteric Mouth: Mucous Membr Moist/[place] Neck: Supple, No lymphadenopathy Chest & Lungs: Chest Wall Normal. Diminished breath sounds bilaterally. Expiratory wheezing bilateral bases. Cardiovascular: Regular Rate/Rhythm, No murmur, No gallop Abdomen: soft, Non-tender, Non-distended, Normoactive bowel tones Extremities: No cyanosis/clubbing/edma bilat Neurological: Grossly Neurologically Intact, Normal Speech Lab and Diagnostics Result Diagram: 04/13/16 0505 04/13/16 0505 X-Rays, CTs and MRIs Date of Service: 04/09/16 1118 PROCEDURE: X-RAY CHEST ONE VIEW, PORTABLE ([id number]) IMPRESSION: Large lung volumes bilaterally, COPD. No pneumothorax or pneumonia is found. Dictated by: Vijay Borja M.D. on 04/09/2016 at 11:46 Approved by: Vijay Borja M.D. on 04/09/2016 at 11:46 Assessment & Plan 65 year old male with history of COPD/emphysema, active smoker, meth user, alcohol abuse and medication non-compliance presents with report of 3 days of acute generalized weakness, body aches, productive cough, chills and worsening shortness of breath. # Acute COPD exacerbation, likely brought on by acute Flu A, poa. ongoing - on PO prednisone - c/w DuoNeb qid while awake and Albuterol prn - c/w supportive care and O2 NC # Acute Flu A - c/w Tamiflu x 10 days. Day 5 # Hypertension, chronic. poorly controlled - increase home dose of Lisinopril - cover with prn IV Hydralazine for now - Will start on Labetalol # Hyponatremia, presumed acute, poa. likely pre-renal and due to meds (Hctz). improving with IVF - hold HCTZ - Now resolved # History of alcohol abuse - denies any history of withdrawals or seizures - currently no evidence of withdrawal - f/u on [facility] protocol # History of Hep C - says finished course of treatment in the past - further f/u by PCP and GI as outpatient # History of Meth use - c/w supportive care # History of tobacco use - pt advised about quitting - nicotine patch daily prn Dispo: 1-2 days pending respiratory status GI Prophylaxis: Proton Pump Inhibitor VTE Prophylaxis: Sub-Q Heparin (Unfractionated) VTE Mechanical Devices: Intermittant Pneumatic CD Resuscitation Status: CPR: Attempt Resuscitation (discusse and verified with the patient) Ubaldo Mckinney MD Apr 13, 2016 12:22
--- NOTE | 2016-04-13 13:11 | DRSVH ---
PROCEDURE: X-RAY CHEST ONE VIEW, PORTABLE ([id number]) INDICATIONS: shortness of breath TECHNIQUE: One view of the chest was acquired. COMPARISON: [facility], CR, XR CHEST 1VW (PORTABLE), 04/09/2016, 11:14. FINDINGS: Surgical changes and devices: None. Lungs and pleura: No pleural effusions or pneumothorax. Lungs are clear. Mediastinum: There is a moderate hiatal hernia. Mediastinal contours otherwise appear normal. Heart size is normal. Bones and chest wall: No suspicious bony lesions. Overlying soft tissues appear unremarkable. IMPRESSION: 1. No acute process. 2. Hiatal hernia. Dictated by: Gian Mcgarry M.D. on 04/13/2016 at 13:10 Approved by: Gian Mcgarry M.D. on 04/13/2016 at 13:10
--- NOTE | 2016-04-13 16:30 | NUR ---
CIWA/anxiety Pt reports feeling "much better and more relaxed", would like to know if he should have the "relaxation medication before he starts to become more anxious. This RN reviewed that pt has not received anxiety mediation since initial assessment. Pt educated about decreased need for IV medications as he is now starting to feel more comfortable and relaxed. No additional medication given, will continue to monitor Addendum: 04/13/16 at 1821 by MARLA FERNANDEZ RN Initial CIWA was 11, is now down to 2.
[2016-04-14] VITALS (13 sets, daily range): BP systolic 133–171; BP diastolic 78–126; PULSE 73–99; RESP 18–24; O2SAT 92–95
[2016-04-14] MEDS: Heparin 5,000 Unit/mL Inj SUBQ SCH ×3 (01:09→17:11)
--- NOTE | 2016-04-14 05:00 | NUR ---
CIWA Pt wanting to urinate in bed, wasnt able to get the bottle in time, reported being flustered and anxious starting sweating and panic episode. Gave PT PRN dose Morphine for 8/10 Headache pain. 0.5mg Valium for CIWA score of 18. 15 min post medication CIWA score of 5. Continuing to monitor. Pt reports Headache pain reduced to 2.
[2016-04-14 05:55] LABS: BASOPHILS % (AUTO) 0 % (0-3); EOSINOPHILS % (AUTO) 0.2 % (0-5); MONOCYTES % (AUTO) 8.8 % (4-12); Mean Corpuscular Hemoglobin 30.8 pg (27.0-35.0); Mean Corpuscular Volume 92.3 fL (81-100); NEUTROPHILS % (AUTO) 81.2 % (40-74); Platelet Count 133 bil/L (150-400)
[2016-04-14] MEDS: Albuterol-Ipratropium 3 mL Inhalation Solution NEB SCH ×4 (06:00→19:58)
[2016-04-14] MEDS: buPROPion SR 150 mg ER12 Tablet PO SCH ×2 (08:15→21:05)
[2016-04-14] MEDS: Pantoprazole 20 mg ER24 Tablet PO SCH ×2 (08:16→17:11)
[2016-04-14] MEDS: predniSONE 20 mg Tablet PO SCH (08:16)
[2016-04-14] MEDS: Fluticasone 0.05% 15 Spray/2 Gm 16 Gm Nasal Spray NASAL SCH (08:16)
[2016-04-14] MEDS: Multivit-Miner-Folic Acid-Iron Tablet PO SCH (08:16)
[2016-04-14] MEDS: Fluticasone-Salmererol 250-50 Inhaler INHALATION SCH ×2 (08:16→21:04)
[2016-04-14] MEDS ORDERED: 0.9% Sodium Chloride 100 ML ONE (14:26)
[2016-04-14] MEDS: Azithromycin Inj 500 MG in Dextrose 5% w/Vial Mate 250 ML IV SCH (14:42)
--- NOTE | 2016-04-14 15:08 | DRSVH ---
PROCEDURE: CT ANGIO CHEST PULMONARY EMBOLISM ([id number]) INDICATIONS: Hypoxia/Possible PE TECHNIQUE: After the administration of intravenous contrast, 2 mm thick sections acquired from the pulmonary api didier to the posterior costophrenic angles. 3-dimensional maximum intensity projection (MIP) coronal a nd sagittal reformats were then acquired through the thorax. For radiation dose reduction, the follo wing was used: automated exposure control, adjustment of mA and/or kV according to patient size. COMPARISON: None. FINDINGS: Image quality: Excellent. Pulmonary arteries: Pulmonary arteries are normal in size, and demonstrate no intraluminal filling d efects to suggest central pulmonary embolism. Lungs and pleura: There is a 24 mm diameter fat containing left posterior hemidiaphragmatic hernia. W ithin the left lung base posteriorly, there is a 10 mm diameter nodule. Mild patchy dependent bilater al lower lobe opacities are present. There is a cavitary 7 mm diameter nodule within the superior seg ment right lower lobe. There is a cavitary 11 mm diameter nodule within the superior segment left low er lobe. No pleural effusions or pneumothorax. Central and peripheral airways are patent. Mediastinum: Heart size is normal, without pericardial effusion. No mediastinal or hilar adenopathy . Thoracic aorta is normal in caliber and enhancement. Esophagus is normal in caliber. There is a m oderate hiatal hernia. Bones and chest wall: No suspicious bony lesions. Ribs and thoracic spine appear intact throughout. Thyroid gland is within normal limits. No axillary or supraclavicular adenopathy. Abdomen: Visualized portions of the upper abdomen demonstrate a nodular hepatic contour, suggestive of cirrhosis. Periesophageal collateral vessels are present. IMPRESSION: 1. No pulmonary embolus. 2. Bilateral lower lobe pneumonia. 3. Superimposed nodular densities within the bilateral lower lobes, some of which are cavitary; diffe rential considerations include atypical microbacterial or fungal infection, septic emboli, and malign carmenza. Clinical assessment is recommended. Imaging followup is recommended as below. 4. Moderate hiatal hernia. 5. Cirrhosis and portal hypertension. Fleischner Society criteria for SOLID lung nodule followup. Nodule size (mm)Low-risk patientHigh-risk [id number] follow-up neededFollow-up at 12 mo; if no hicks e, no further follow-up>[id number] CT at 12 mo; if no change, no further follow-up needed.Initial f ollow-up CT at 6-12 mo, then 18-24 mo if no change. >6-8Initial follow-up CT at 6-12 mo, then 18-24 mo if no change. Initial follow-up CT at 3-6 mo, then 9-12 mo and 24 mo if no change. >8Follow-up CT at 3, 9, 24 mo. Or PET and/or biopsy.Same as for low-risk pts. Dictated by: Gian Mcgarry M.D. on 04/14/2016 at 15:06 Approved by: Gian Mcgarry M.D. on 04/14/2016 at 15:06
--- NOTE | 2016-04-14 20:28 | PCM.PNMED ---
Subjective Date of Service Apr 14, 2016 Subjective The patient feels okay however with any movement he apparently becomes very short of breath. Exam Vital Signs Vital Sign - Last Date Time Temp Pulse Resp B/P Pulse Ox O2 Delivery O2 Flow Rate FiO2 04/14/16 19:58 84 18 92 Nasal Cannula 2.00 04/14/16 17:09 36.8 133/78 Intake and Output 04/13/16 04/13/16 04/14/16 Cumulative From/Thru 15:00 23:00 07:00 04/09/16 11:13 - 04/14/16 05:15 Intake Total 200 ml 636 ml 500 ml 6596 ml Output Total 400 ml 750 ml 700 ml 5800 ml Balance -200 ml -114 ml -200 ml 796 ml Intake Oral 200 ml 636 ml 500 ml 4899 ml IV Total 1697 ml Output Urine Total 400 ml 750 ml 700 ml 5800 ml # Voids 1 2 # Bowel Movements 0 0 1 Exam General: Patient is lying supine in bed with head elevated approximately 30 in no apparent distress. However with any exertion he becomes quite short of breath. HEENT: Head is atraumatic normocephalic. Eyes: Pupils are equally round and reactive to light and accommodation. Extraocular muscles are intact. Sclera are white anicteric. Subconjunctival mucosa is pink. Ears and nose are unremarkable. Oropharynx: There are no mucosal lesions, there is no thrush, there is no pharyngitis. Neck: Is supple, there are no nodes or masses or tenderness. Chest: Is clear to auscultation and percussion. There are no rales, rhonchi, wheezes or rubs. Heart: Rate, rhythm is regular. There is no murmur, rub or gallop. Abdomen: Good bowel sounds are present. Abdomen is soft, nontender, no organomegaly or masses were appreciated. Extremities: Are symmetrical and well perfused. There is no edema, there is no cellulitis, no rash. Neurologic: There are no focal neurological deficits. Cranial nerves II through XII are intact. There are no sensory or motor deficits. Psychiatric: Patients mood is calm and shows no sign of agitation. Genital: Deferred Rectal: Deferred Lab and Diagnostics Result Diagram: 04/14/16 0515 04/14/16 0515 X-Rays, CTs and MRIs Date of Service: 04/09/16 0798 PROCEDURE: X-RAY CHEST ONE VIEW, PORTABLE ([id number]) IMPRESSION: Large lung volumes bilaterally, COPD. No pneumothorax or pneumonia is found. Dictated by: Vijay Borja M.D. on 04/09/2016 at 11:46 Approved by: Vijay Borja M.D. on 04/09/2016 at 11:46 PROCEDURE: CT ANGIO CHEST PULMONARY EMBOLISM ([id number]) INDICATIONS: Hypoxia/Possible PE TECHNIQUE: After the administration of intravenous contrast, 2 mm thick sections acquired from the pulmonary apices to the posterior costophrenic angles. 3-dimensional maximum intensity projection (MIP) coronal and sagittal reformats were then acquired through the thorax. For radiation dose reduction, the following was used: automated exposure control, adjustment of mA and/or kV according to patient size. COMPARISON: None. FINDINGS: Image quality: Excellent. Pulmonary arteries: Pulmonary arteries are normal in size, and demonstrate no intraluminal filling defects to suggest central pulmonary embolism. Lungs and pleura: There is a 24 mm diameter fat containing left posterior hemidiaphragmatic hernia. Within the left lung base posteriorly, there is a 10 mm diameter nodule. Mild patchy dependent bilateral lower lobe opacities are present. There is a cavitary 7 mm diameter nodule within the superior segment right lower lobe. There is a cavitary 11 mm diameter nodule within the superior segment left lower lobe. No pleural effusions or pneumothorax. Central and peripheral airways are patent. Mediastinum: Heart size is normal, without pericardial effusion. No mediastinal or hilar adenopathy. Thoracic aorta is normal in caliber and enhancement. Esophagus is normal in caliber. There is a moderate hiatal hernia. Bones and chest wall: No suspicious bony lesions. Ribs and thoracic spine appear intact throughout. Thyroid gland is within normal limits. No axillary or supraclavicular adenopathy. Abdomen: Visualized portions of the upper abdomen demonstrate a nodular hepatic contour, suggestive of cirrhosis. Periesophageal collateral vessels are present. IMPRESSION: 1. No pulmonary embolus. 2. Bilateral lower lobe pneumonia. 3. Superimposed nodular densities within the bilateral lower lobes, some of which are cavitary; differential considerations include atypical microbacterial or fungal infection, septic emboli, and malignancy. Clinical assessment is recommended. Imaging followup is recommended as below. 4. Moderate hiatal hernia. 5. Cirrhosis and portal hypertension. Fleischner Society criteria for SOLID lung nodule followup. Nodule size (mm)Low-risk patientHigh-risk [id number] follow-up neededFollow-up at 12 mo; if no change, no further follow-up>[id number] CT at 12 mo; if no change, no further follow-up needed.Initial follow-up CT at 6-12 mo, then 18-24 mo if no change. >6-8Initial follow-up CT at 6-12 mo, then 18-24 mo if no change. Initial follow-up CT at 3-6 mo, then 9-12 mo and 24 mo if no change. > 8Follow-up CT at 3, 9, 24 mo. Or PET and/or biopsy.Same as for low-risk pts. Dictated by: Gian Mcgarry M.D. on 04/14/2016 at 15:06 Approved by: Gian Mcgarry M.D. on 04/14/2016 at 15:06 Cardiac Echo Impressions Pending Assessment & Plan 65 year old male with history of COPD/emphysema, active smoker, meth user, alcohol abuse and medication non-compliance presents with report of 3 days of acute generalized weakness, body aches, productive cough, chills and worsening shortness of breath. # Acute COPD exacerbation, likely brought on by acute influenza A, present at the time of admission. ongoing -CT scan of the chest reveals bilateral lower lobe nodular pneumonia with some cavitary disease. Etiology is uncertain. -Differential includes fungal, mycobacterial or other atypical infection -We will likely obtain pulmonary consultation and infectious disease consultation. -Patient has no signs or symptoms of infection with no fever chills or diaphoresis. He also has no cough. However have significant hypoxia and shortness of breath -We will empirically start azithromycin as this may help his COPD as well as an atypical infection -We will ask respiratory therapy to induce a sputum for sputum Gram stain C &S. - on PO prednisone - c/w DuoNeb qid while awake and Albuterol prn - c/w supportive care and O2 NC # Acute influenza A - c/w Tamiflu x 10 days. Day 5 # Hypertension, chronic. poorly controlled - increase home dose of Lisinopril - cover with prn IV Hydralazine for now - Will continue on Labetalol started this admission # Hypoxia -Likely is secondary to pulmonary process as described above. -Rule out hypertensive cardiomyopathy -Check echocardiogram # Hyponatremia, presumed acute, present on admission. Likely pre-renal and due to meds (Hctz). improving with IVF - hold HCTZ - Now resolved # History of alcohol abuse - denies any history of withdrawals or seizures - currently no evidence of withdrawal - Continue on CIWA protocol # History of Hep C - Patient says finished course of treatment in the past - Patient will need further f/u by PCP and GI as outpatient # History of Meth use - c/w supportive care -Recommend substance abuse counseling # History of tobacco use - pt advised about quitting - nicotine patch daily prn Dispo: Pending respiratory status and consultants recommendations Discuss case with patient's 2 daughters at bedside at length. All questions were answered. Pain Evaluation: Adequate Pain Control GI Prophylaxis: Proton Pump Inhibitor VTE Prophylaxis: Sub-Q Heparin (Unfractionated) VTE Mechanical Devices: Intermittant Pneumatic CD Resuscitation Status: CPR: Attempt Resuscitation (discusse and verified with the patient) Luis Alberto Medina MD Apr 14, 2016 20:28
[2016-04-14] MEDS: Albuterol 1.25 mg/3 mL Inhalation Solution NEB PRN (23:52)
[2016-04-15] VITALS (8 sets, daily range): BP systolic 121–153; BP diastolic 73–97; PULSE 71–93; RESP 20–24; O2SAT 90–96
[2016-04-15] MEDS: Heparin 5,000 Unit/mL Inj SUBQ SCH ×3 (01:10→18:10)
--- NOTE | 2016-04-15 05:36 | NUR ---
CIWA/Respiratory Pt was very anxious, "having a panic attack", and requesting valium. CIWA at that time was 14. 5mg Valium given. CIWA down to 3 again. SpO2 in low 90s on 2L O2 via NC. has SOB with exertion. used urinal in bed tonight.
[2016-04-15] MEDS: Albuterol-Ipratropium 3 mL Inhalation Solution NEB SCH ×4 (06:00→20:22)
[2016-04-15] MEDS: buPROPion SR 150 mg ER12 Tablet PO SCH ×2 (08:12→21:47)
[2016-04-15] MEDS: Multivit-Miner-Folic Acid-Iron Tablet PO SCH (08:12)
[2016-04-15] MEDS: Fluticasone-Salmererol 250-50 Inhaler INHALATION SCH (08:12)
[2016-04-15] MEDS: predniSONE 20 mg Tablet PO SCH (08:12)
[2016-04-15] MEDS: Fluticasone 0.05% 15 Spray/2 Gm 16 Gm Nasal Spray NASAL SCH (08:12)
[2016-04-15] MEDS: Azithromycin Inj 500 MG in Dextrose 5% w/Vial Mate 250 ML IV SCH (08:13)
[2016-04-15] MEDS: Pantoprazole 20 mg ER24 Tablet PO SCH ×2 (08:13→18:10)
[2016-04-15 08:38] LABS: BASOPHILS % (AUTO) 0.1 % (0-3); EOSINOPHILS % (AUTO) 0.2 % (0-5); Mean Corpuscular Hemoglobin 30.5 pg (27.0-35.0); Mean Corpuscular Volume 93.7 fL (81-100); NEUTROPHILS % (AUTO) 78.2 % (40-74); Platelet Count 132 bil/L (150-400)
[2016-04-15] MEDS: Albuterol 1.25 mg/3 mL Inhalation Solution NEB PRN (10:13)
[2016-04-15] MEDS ORDERED: ALPRAZolam 0.25 mg Tablet ONE (10:37)
[2016-04-15] MEDS: guaiFENesin DM 200-20 mg/10 mL Syrup PO PRN (15:08)
--- NOTE | 2016-04-15 15:59 | NUR ---
Evaluation completed. Please go to "Notes" then click on "Assessments and Notes" (bottom left corner of screen). Then select appropriate discipline tab on top of screen.
--- NOTE | 2016-04-15 16:05 | CONS ---
[address] [address] CONSULTATION REPORT PATIENT: ADARSH DUNLAP : 1950 MR#: [id number] ADMIT: 04/09/2016 JOB ID: [id number] DATE OF SERVICE: 04/15/2016 INFECTIOUS DISEASE CONSULTATION: I thank Dr. Medina for this timely consult. REASON FOR CONSULTATION: Multiple lower lobe capture of pulmonary nodules, some with cavitation. HISTORY OF PRESENT ILLNESS: The patient is a 65-year-old gentleman with underlying medical problems which include COPD and perhaps cirrhosis as demonstrated by recent CT scan. He has a longstanding history of substance abuse including injection methamphetamine use, which he reports he quit 20 years ago and then switched to inhaling methamphetamine. He has also been an alcohol abuser and an ongoing cigarette smoker. He states that some years ago he was forced to quit working because of progressive dyspnea on exertion secondary to his underlying COPD. The patient was admitted to this facility on April 09, because of weakness, myalgias, arthralgias, productive cough, and chills, which was all associated with a worsening of his chronic baseline severe shortness of breath. Shortly after admission it was determined that the patient had influenza A. Chest x-rays did not show any new infiltrate and the patient was just treated initially for COPD exacerbation and with oseltamivir for influenza A. The patient has remained quite short of breath; in fact, he states even if he tries to move about in bed he becomes profoundly dyspneic despite being on nasal oxygen. Because of his diagnosis of COPD, he was started on azithromycin as part of his COPD management by Dr. Medina yesterday. In addition his oseltamivir was continued and a CT scan of the chest was done to see if it added anymore detail to what we see on the chest x-ray, which is largely just a picture of COPD. Surprisingly, the CT scan of the chest shows small pulmonary nodules in the lower lobes, some of which are cavitating. ID consultation is requested today regarding this these lesions. It is worth noting that the patient does not have any prior CT scans of his chest up until the one done yesterday which shows the small nodules. Prior chest x-rays have failed to show any such lesions as well. 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 He has not been back there since, however. He has also spent time in [place] in areas endemic for histo as well, but that was more in the distant past. He has not traveled internationally except of course from [place] and has not lived overseas or spent time in the [place] . He reports no longstanding sinus complaints. PAST MEDICAL HISTORY: 1. COPD. 2. Cirrhosis by CT scan. 3. Hypertension. 4. GERD. 5. Hepatitis C which he says was treated but that he failed treatment in the past. 6. History of polysubstance abuse including the use of tobacco cigarettes, inhaled marijuana, inhaled meth, and heavy alcohol. SOCIAL HISTORY: The patient lives in the local area. He is disabled and does not work any more. He smokes cigarettes, smokes marijuana, and smokes methamphetamine. He no longer injects drugs, but used to. FAMILY HISTORY: As far as he knows is negative for tuberculosis. REVIEW OF SYSTEMS: The patient still has a headache, which was one of the symptoms he had when he came to the hospital with the flu a few days ago. He reports no acute visual change. No sore throat at this point. He has a cough which was productive when he got admitted but it is now nonproductive. He is short of breath with even minimal exertion. No chest pain. No significant nausea, vomiting diarrhea, or dysuria. PHYSICAL EXAMINATION: Reveals a somewhat short of breath gentleman in no acute distress who is able to participate in history gathering. He is afebrile and has been since admission. Temperature 36.8, blood pressure 121/79, pulse 86, respiratory rate 20, saturating fairly well on 2-3 L, but he is as mentioned short of breath even with minimal exertion. His mental status seems to be clear. He can offer some good history. No evidence of head trauma. Eyes without conjunctivitis. The oral cavity without thrush, hairy leukoplakia, or pharyngitis. Neck supple, without adenopathy. Lungs with scattered wheezes otherwise clear. Cardiac tones regular rate and rhythm. Abdomen: Slightly distended, soft and nontender. No Hilliard catheter is present. No suprapubic tenderness. No evidence of synovitis or joint effusion. No cellulitis and the extremities are well perfused. He is neurologically intact. LABORATORIES: Include white count which started off normal at 7000 on admission. It has now bumped to 12,000. The white count has been progressively increasing, but the patient is on significant doses of prednisone currently at 40 a day. The differential shows the expected increase in mature neutrophils, but no band forms, so this would appear to be due to steroids. Creatinine is 0.73. LFTs are normal. Procalcitonin done this morning 0.1. There are no preceding values. Urinalysis not done. Micro studies include a rapid flu which was positive on admission, as well as a sputum which showed too many epithelial cells and was discarded. His chest x-ray when he was initially admitted on the showed no focal infiltrates but was consistent with COPD. A followup chest x-ray on the again showed no evidence of acute infiltrate, but a CT scan done yesterday which we reviewed on the view screen shows bilateral lower lobe nodular infiltrates, some of which are cavitating. The radiologist offered a differential diagnosis that included mycobacterial or fungal infection, septic emboli, or cancer. Also noted they thought was cirrhosis with portal hypertension. IMPRESSION: This is a complex case of a gentleman who has been very short of breath for a long period of time due to chronic obstructive pulmonary disease and ongoing cigarette smoking. It also appears at least radiographically that he has cirrhosis with portal hypertension, probably on the basis of a combination of hepatitis C and alcohol abuse. He was admitted with a classic flu-like illness and turned out to have influenza A. he was started on oseltamivir but has remained moderately short of breath even as his constitutional symptoms have resolved. A CT scan done to shed more light on the subject has revealed a surprising finding which is bilateral pulmonary lower lobe nodules, some with quite extensive cavitation. The differential diagnosis here is broad and includes such possibilities as lung cancer, Lucy's granulomatosis, bacterial process with Staph or Pseudomonas (which I doubt given his lack of toxicity), right-sided endocarditis with septic emboli (which I also doubt based on lack of toxicity), actinomycosis or Nocardia, mycobacterial infection, fungal infection such as cryptococcosis, coccidioidomycosis, or histoplasmosis, or even pneumocystis carinii pneumonia (PCP). RECOMMENDATIONS: 1. This case discussed in detail with Dr. Medina. 2. I would agree with continuing azithromycin for COPD management. 3. I agree with the echocardiogram which was ordered today and will be checking those results tomorrow, hopefully. 4. Additional labs to be done here include an ANCA, blood cultures x2, crypto antigen, cocci antibodies, and histo urine antigen. 5. Additional serologies here will include an HIV. 6. The patient will need followup at some point with a GI physician at the clinic to re-evaluate his hepatitis C and see if cured or if newer generation therapy is indicated. 7. I agree with Dr. Medina's approach to this case, giving azithromycin to this chronic COPD'er as well as going ahead and completing a five day course of oseltamivir. 8. This patient may eventually require bronchoscopy if we do not establish the cause of these pulmonary lesions. Thank you very much for this consult.
--- NOTE | 2016-04-15 16:37 | DRSVH ---
[facility] [address] [place] [address] Echocardiogram Report Name: ADARSH DUNLAP Study Date: 04/15/2016 Height: 67 in Hospital Exam Location: [facility] Weight: 160 lb Gender: Male BSA: 1.8 m2 : 1950 Age: 65 yrs BP: 153/97 mm Hg Reason For Study: COPD Ordering Physician: HOSPITALIST [facility] Performed By: Dolly Ordonez Referring Physician: Dr. Red Sawant Interpretation Summary The left ventricle is not well visualized but grossly appears normal in size with normal left ventricular wall thickness. Left ventricular systolic function is probably normal with the ejection fraction roughly estimated to be 60-65% without obvious focal wall motion abnormalities noted but poor endocardial definition reduces the sensitivity for the detection of such. The E/A ratio is reversed, suggesting impaired early relaxation of the left ventricle or a reduced preload state. The right ventricle is not well visualized but grossly appears normal in size with probable normal systolic function. Pulmonary artery pressures cannot be estimated because of the lack of a measurable TR jet velocity. Left atrial size is normal and the right atrium not visualized. There is no obvious significant valvular heart disease. The ascending aorta is mildly enlarged. Procedure: A two-dimensional transthoracic echocardiogram with color flow and Doppler was performed. The study quality was technically difficult. There is no prior echocardiogram noted for this patient. A contrast injection of Definity was performed to improve assessment of LV function. The patient was in normal sinus rhythm during the exam. Left Ventricle: The left ventricle is not well visualized. The left ventricle is grossly normal size. There is normal left ventricular wall thickness. Left ventricular systolic function is probably normal. The ejection fraction is estimated to be 60-65%. There are no obvious focal wall motion abnormalities noted but poor endocardial definition reduces the sensitivity for the detection of such. The E/A ratio is reversed, suggesting impaired early relaxation of the left ventricle or a reduced preload state. Right Ventricle: The right ventricle is not well visualized. The right ventricle grossly appears normal in size with probable normal systolic function. Atria: The left atrial size is normal. Right atrium not well visualized. There is no Doppler evidence for an interatrial shunt. Mitral Valve: There is mild to moderate mitral annular calcification. The mitral valve leaflets appear normal. There is no evidence of stenosis, fluttering, or prolapse. There is no mitral regurgitation noted. Aortic Valve: The aortic valve is not well visualized. The aortic valve is mildly calcified. Leaflet mobility is mildly reduced. There is no aortic valve stenosis. No aortic regurgitation is present. Tricuspid Valve: The tricuspid valve is not well visualized. No tricuspid regurgitation. Pulmonary artery pressures cannot be estimated because of the lack of a measurable TR jet velocity. Pulmonic Valve: The pulmonic valve is not well visualized. There is no significant valvular heart disease. Great Vessels: The aortic root is normal size. The ascending aorta is mildly enlarged. The inferior vena cava was not visualized. Pericardium/ Pleura There is no pericardial effusion. MMode/2D Measurements & Calculations LVOT diam: 1.8 cm LA A2 area: 13.8 cm Ao root diam: 3.7 cm LA A4 area: 16.6 cm Aortic Jxn: 3.0 cm LA length (vol): 4.5 cm asc Aorta Diam: 3.6 cm LA vol: 42.8 ml LA vol index: 23.3 ml/m2 Doppler Measurements & Calculations Ao V2 max MV E max aldo MV E/A: 0.94 PA V2 max : 159.0 cm/sec : 72.6 cm/sec Med Peak E' Aldo : 79.1 cm/sec Ao max PG MV A max aldo PA mean PG : 10.1 mmHg : 77.3 cm/sec E/E' med: 10.0 Ao mean PG MV P1/2t: 69.4 msec MV A dur: 0.12 sec PA Accel Time : 0.09 sec LVOT Max Aldo : 120.4 cm/sec VLADIMIR(I,D): 2.3 cm sev ratio MV dec time MV P1/2t max aldo Ao V2 mean LV V1 max PG : 0.24 sec : 103.0 cm/sec MVA(P1/2t): 3.2 cm2 Ao V2 VTI: 28.6 cm LV V1 VTI VLADIMIR(V,D): 2.0 cm2 : 24.[address] VLADIMIR indexed to BSA : 58.3 cm/sec (cm^2/m^2): 1.2 Reading Physician:04:36 PM
[2016-04-15] MEDS: ALPRAZolam 0.5 mg Tablet PO PRN (17:53)
--- NOTE | 2016-04-15 19:01 | PCM.PNMED ---
Subjective Date of Service Apr 15, 2016 Subjective Patient complains of getting phlegm stuck in his throat this morning and was unable to expectorate it. He complains of diaphoresis and shortness of breath. He has no fever no chills. He has no other new complaints. Exam Vital Signs Vital Sign - Last Date Time Temp Pulse Resp B/P Pulse Ox O2 Delivery O2 Flow Rate FiO2 04/15/16 16:33 91 22 96 Nasal Cannula 2.00 04/15/16 10:34 36.8 121/79 Intake and Output 04/14/16 04/14/16 04/15/16 Cumulative From/Thru 15:00 23:00 07:00 04/09/16 11:13 - 04/15/16 06:15 Intake Total 720 ml 500 ml 7816 ml Output Total 400 ml 500 ml 6700 ml Balance 320 ml 0 ml 1116 ml Intake Oral 720 ml 500 ml 6119 ml IV Total 1697 ml Output Urine Total 400 ml 500 ml 6700 ml # Voids 2 # Bowel Movements 0 1 Exam General: Patient is sitting up in bed in some distress. He is trying to cough up some phlegm and complains that it is stuck in his throat. He is diaphoretic. He is able to carry on a conversation and was able to cough up some phlegm during my visit and felt much better. HEENT: Head is atraumatic normocephalic. Eyes: Pupils are equally round and reactive to light and accommodation. Extraocular muscles are intact. Sclera are white anicteric. Subconjunctival mucosa is pink. Ears and nose are unremarkable. Oropharynx: There are no mucosal lesions, there is no thrush, there is no pharyngitis. Neck: Is supple, there are no nodes, or masses or tenderness. Chest: Is clear to auscultation and percussion. There are no rales, rhonchi, wheezes or rubs. Heart: Rate, rhythm is regular. There is no murmur, rub or gallop. Abdomen: Good bowel sounds are present. Abdomen is soft, nontender, no organomegaly or masses were appreciated. Extremities: Are symmetrical and well perfused. There is no edema, there is no cellulitis, no rash. Neurologic: There are no focal neurological deficits. Cranial nerves II through XII are intact. There are no sensory or motor deficits. Psychiatric: Patients mood is calm and shows no sign of agitation after he was able to cough up some phlegm. Genital: Deferred Rectal: Deferred Lab and Diagnostics Result Diagram: 04/15/16 0815 04/15/16 0815 X-Rays, CTs and MRIs Date of Service: 04/09/16 1118 PROCEDURE: X-RAY CHEST ONE VIEW, PORTABLE ([id number]) IMPRESSION: Large lung volumes bilaterally, COPD. No pneumothorax or pneumonia is found. Dictated by: Vijay Borja M.D. on 04/09/2016 at 11:46 Approved by: Vijay Borja M.D. on 04/09/2016 at 11:46 PROCEDURE: CT ANGIO CHEST PULMONARY EMBOLISM ([id number]) INDICATIONS: Hypoxia/Possible PE TECHNIQUE: After the administration of intravenous contrast, 2 mm thick sections acquired from the pulmonary apices to the posterior costophrenic angles. 3-dimensional maximum intensity projection (MIP) coronal and sagittal reformats were then acquired through the thorax. For radiation dose reduction, the following was used: automated exposure control, adjustment of mA and/or kV according to patient size. COMPARISON: None. FINDINGS: Image quality: Excellent. Pulmonary arteries: Pulmonary arteries are normal in size, and demonstrate no intraluminal filling defects to suggest central pulmonary embolism. Lungs and pleura: There is a 24 mm diameter fat containing left posterior hemidiaphragmatic hernia. Within the left lung base posteriorly, there is a 10 mm diameter nodule. Mild patchy dependent bilateral lower lobe opacities are present. There is a cavitary 7 mm diameter nodule within the superior segment right lower lobe. There is a cavitary 11 mm diameter nodule within the superior segment left lower lobe. No pleural effusions or pneumothorax. Central and peripheral airways are patent. Mediastinum: Heart size is normal, without pericardial effusion. No mediastinal or hilar adenopathy. Thoracic aorta is normal in caliber and enhancement. Esophagus is normal in caliber. There is a moderate hiatal hernia. Bones and chest wall: No suspicious bony lesions. Ribs and thoracic spine appear intact throughout. Thyroid gland is within normal limits. No axillary or supraclavicular adenopathy. Abdomen: Visualized portions of the upper abdomen demonstrate a nodular hepatic contour, suggestive of cirrhosis. Periesophageal collateral vessels are present. IMPRESSION: 1. No pulmonary embolus. 2. Bilateral lower lobe pneumonia. 3. Superimposed nodular densities within the bilateral lower lobes, some of which are cavitary; differential considerations include atypical microbacterial or fungal infection, septic emboli, and malignancy. Clinical assessment is recommended. Imaging followup is recommended as below. 4. Moderate hiatal hernia. 5. Cirrhosis and portal hypertension. Fleischner Society criteria for SOLID lung nodule followup. Nodule size (mm)Low-risk patientHigh-risk [id number] follow-up neededFollow-up at 12 mo; if no change, no further follow-up>[id number]-eb CT at 12 mo; if no change, no further follow-up needed.Initial follow-up CT at 6-12 mo, then 18-24 mo if no change. >6-8Initial follow-up CT at 6-12 mo, then 18-24 mo if no change. Initial follow-up CT at 3-6 mo, then 9-12 mo and 24 mo if no change. > 8Follow-up CT at 3, 9, 24 mo. Or PET and/or biopsy.Same as for low-risk pts. Dictated by: Gian Mcgarry M.D. on 04/14/2016 at 15:06 Approved by: Gian Mcgarry M.D. on 04/14/2016 at 15:06 Cardiac Echo Impressions Echocardiogram Report Name: ADARSH DUNLAP Study Date: 04/15/2016 Height: 67 in Hospital Exam Location: [facility] Weight: 160 lb Gender: Male BSA: 1.8 m2 : 1950 Age: 65 yrs BP: 153/97 mm Hg Reason For Study: COPD Ordering Physician: HOSPITALIST [facility] Performed By: Dolly Ordonez Referring Physician: Dr. Red Sawant Interpretation Summary The left ventricle is not well visualized but grossly appears normal in size with normal left ventricular wall thickness. Left ventricular systolic function is probably normal with the ejection fraction roughly estimated to be 60-65% without obvious focal wall motion abnormalities noted but poor endocardial definition reduces the sensitivity for the detection of such. The E/A ratio is reversed, suggesting impaired early relaxation of the left ventricle or a reduced preload state. The right ventricle is not well visualized but grossly appears normal in size with probable normal systolic function. Pulmonary artery pressures cannot be estimated because of the lack of a measurable TR jet velocity. Left atrial size is normal and the right atrium not visualized. There is no obvious significant valvular heart disease. The ascending aorta is mildly enlarged. Assessment & Plan 65 year old male with history of COPD/emphysema, active smoker, meth user, alcohol abuse and medication non-compliance presents with report of 3 days of acute generalized weakness, body aches, productive cough, chills and worsening shortness of breath. # Acute COPD exacerbation, likely brought on by acute influenza A, present at the time of admission. ongoing -CT scan of the chest reveals bilateral lower lobe nodular pneumonia with some cavitary disease. Etiology is uncertain. -We we have obtained pulmonary consultation and infectious disease consultation. Dr. Francois was kind enough to see the patient today and his differential diagnosis includes: "The differential diagnosis here is broad and includes such possibilities as lung cancer, Lucy's granulomatosis, bacterial process with Staph or Pseudomonas (which I doubt given his lack of toxicity), right-sided endocarditis with septic emboli (which I also doubt based on lack of toxicity), actinomycosis or Nocardia, mycobacterial infection, fungal infection such as cryptococcosis, coccidioidomycosis, or histoplasmosis, or even pneumocystis carinii pneumonia (PCP)." -Patient has no signs or symptoms of infection with no fever, or further chills. Patient did have diaphoresis today when he could not expectorate phlegm but normally has not had any diaphoresis. He does have a cough today. She continues to have significant shortness of breath and hypoxia. -We will continue azithromycin as this may help his COPD as well as an atypical infection -We asked respiratory therapy to induce a sputum for sputum Gram stain C& S. However, the specimen was deemed inadequate due to predominance of epithelial cells and was discarded. - Continue on PO prednisone 40 mg a day - Continue on DuoNeb qid while awake and Albuterol prn - Continue supportive care and O2 NC -Dr. Francois has recommended the following testing: "Additional labs to be done here include an ANCA, blood cultures x2, crypto antigen, cocci antibodies, and histo urine antigen. Additional serologies here will include an HIV." # Acute influenza A -Continue Tamiflu x 10 days. Day 6 of 10. # Hypertension, chronic. poorly controlled at home - Lisinopril dose was increased -Continue to cover with prn IV Hydralazine for now - Will continue on Labetalol started this admission # Acute on chronic respiratory failure with hypoxia -Likely is secondary to pulmonary process as described above with COPD exacerbation. -Rule out hypertensive cardiomyopathy -However echocardiogram fails to reveal any significant abnormalities # Hyponatremia, presumed acute, present on admission. Likely pre-renal and due to meds (Hctz). improved with IVF - Continue to hold HCTZ - Now resolved # History of alcohol abuse - denies any history of withdrawals or seizures - currently no evidence of withdrawal - Continue on CIWA protocol as needed # History of Hep C - Patient says finished course of treatment in the past - Patient will need further f/u by PCP and GI as outpatient # History of Meth use patient states he used to smoke it but that bothered his COPD so now he snorts it - Continue supportive care -Recommend substance abuse counseling # History of tobacco use - pt advised about quitting - nicotine patch daily prn Dispo: Pending respiratory status and consultants recommendations Discuss case with patient's daughter at bedside at length. All questions were answered. Discussed with Dr. Francois at length and appreciate his input. Pain Evaluation: Adequate Pain Control GI Prophylaxis: Proton Pump Inhibitor VTE Prophylaxis: Sub-Q Heparin (Unfractionated) VTE Mechanical Devices: Intermittant Pneumatic CD Resuscitation Status: CPR: Attempt Resuscitation (discusse and verified with the patient) Luis Alberto Medina MD Apr 15, 2016 19:01
[2016-04-16] VITALS (7 sets, daily range): BP systolic 150–170; BP diastolic 84–98; PULSE 76–96; RESP 20–24; O2SAT 92–95
[2016-04-16] MEDS: Heparin 5,000 Unit/mL Inj SUBQ SCH (01:00)
[2016-04-16] MEDS: Albuterol-Ipratropium 3 mL Inhalation Solution NEB SCH ×4 (08:08→21:27)
[2016-04-16] MEDS: Fluticasone 0.05% 15 Spray/2 Gm 16 Gm Nasal Spray NASAL SCH (08:31)
[2016-04-16] MEDS: ALPRAZolam 0.5 mg Tablet PO PRN ×2 (08:31→16:49)
[2016-04-16] MEDS: Multivit-Miner-Folic Acid-Iron Tablet PO SCH (08:32)
[2016-04-16] MEDS: Pantoprazole 20 mg ER24 Tablet PO SCH ×2 (08:32→16:49)
[2016-04-16] MEDS: predniSONE 20 mg Tablet PO SCH (08:32)
[2016-04-16] MEDS: buPROPion SR 150 mg ER12 Tablet PO SCH ×2 (08:33→20:41)
[2016-04-16] MEDS: Azithromycin Inj 500 MG in Dextrose 5% w/Vial Mate 250 ML IV SCH (08:37)
[2016-04-16 09:09] LABS: Cryptococcal Ag Negative (Negative)
[2016-04-16 09:23] LABS: BASOPHILS % (AUTO) 0.1 % (0-3); EOSINOPHILS % (AUTO) 0.6 % (0-5); MONOCYTES % (AUTO) 12.7 % (4-12); Mean Corpuscular Hemoglobin 30.8 pg (27.0-35.0); Mean Corpuscular Volume 93.7 fL (81-100); NEUTROPHILS % (AUTO) 70.8 % (40-74); Platelet Count 155 bil/L (150-400)
[2016-04-16] MEDS ORDERED: 0.9% Sodium Chloride 250 ML ONE (09:46)
[2016-04-16] MEDS: guaiFENesin DM 200-20 mg/10 mL Syrup PO PRN ×2 (10:41→23:25)
--- NOTE | 2016-04-16 15:37 | NUR ---
Evaluation completed. Rec; Garrett/Soft. Medication as tolerated. ETHNOLOGY TEACHER to follow Please go to "Notes" then click on "Assessments and Notes" (bottom left corner of screen). Then select appropriate discipline tab on top of screen.
--- NOTE | 2016-04-16 15:44 | PROG NOTE ---
[address] [address] PROGRESS NOTE PATIENT: ADARSH DUNLAP : 1950 MR#: [id number] ADMIT: 04/09/2016 JOB ID: [id number] DATE: 04/16/2016 INFECTIOUS DISEASE FOLLOW UP NOTE: REASON FOR FOLLOW UP: Respiratory insufficiency with associated influenza, rule out bacterial infection. INTERVAL HISTORY: The patient reports he is a bit better today, able to walk around the room with less shortness of breath and with minimal cough. No fevers, chills or sweats. PHYSICAL EXAMINATION: Reveals a much more comfortable gentleman sitting in bed with nasal oxygen in place at 2 L. He is saturating 94% on that. He has been afebrile. Temperature 36.6, pulse 85, respiratory rate 24, blood pressure 150/84. He is in much less distress than yesterday. He is alert and lucid. Oral cavity negative. Lungs: Better airflow. Some crackles at the bases but much better airflow than yesterday. Abdomen: Negative. No skin rash. LABORATORIES: Include white count of 8800, which is improved from yesterday. He has a mild monocytosis otherwise normal differential. Creatinine 0.72. Albumin 3. Urine Legionella is negative. HIV negative. Cryptococcal antigen negative. Coughlin C antibodies are pending. A sputum from the had no polys whatsoever and is, therefore, of no value. Blood cultures negative. MRSA screen negative and pneumococcal and Legionella urine antigens are negative. IMAGING: Nothing to add in terms imaging compared to yesterday's consult. IMPRESSION: This is a patient with longstanding chronic obstructive pulmonary disease and ongoing cigarette smoking. 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 He had a flu-like illness that turned out to actually be influenza and is now receiving oseltamivir. The patient is also receiving azithromycin aimed at his underlying chronic obstructive pulmonary disease rather than any particular pathogen. The new finding on the CT scan done a couple days ago was pulmonary nodules, some of which have cavitated. The differential diagnosis is broad and continues to include possibilities such as lung cancer, Delmy granulomatosis, endocarditis with septic emboli, actinomycosis, Nocardia, mycobacterial infection, Coughlin C or vasculitis. RECOMMENDATIONS: 1. We continue with azithro for his COPD but this can be changed to oral. 2. We await the multiple pending cultures and studies which have been ordered. 3. If the patient continues to improve on azithromycin and oseltamivir, I think he could be reasonably discharged in the near future and follow up on these multiple studies with ID or pulmonary on an outpatient basis. If, on the other hand, the patient fails to progress enough to go home, he may require additional workup and possible bronchoscopy by the pulmonary team.
--- NOTE | 2016-04-16 16:15 | NUR ---
Social Work: Chemical Dependency Assessment Current Circumstances: Pt states he currently uses meth, marijuana, and alcohol. Pt states that his health is in jeopardy because of his continual use. Hx of substance abuse: Pt states he smoked his first joint when he was 7 y/o and has been using ever since. Hx ot tx: No treatment other than NA and AA. Hx of withdrawl: No reported hx of withdrawal. Pt has not had withdrawal symptoms in hospital either. Family hx: Pt states his family has a culture of addiction with his dad drinking too much all of the time and other family members using. Hx of sobriety: Pt reports that he has had multiple periods where he stopped using and drinking spanning in length from 2 weeks to 6 moths. Pt perception of use: Pt states that he is completely done with drugs. He states that he has been sober for 7 days in the hospital now and he wants to keep that up. Suicide risk: Pt reports no current SI or HI. Low risk. SUPPORT GROUP MANAGER offered pt resources, pt declined saying he knows the local resources and plans to get back to going to NA and AA. SARA Shen
--- NOTE | 2016-04-16 16:20 | NUR ---
Social Work: Continued d/c planning Data: SALES SUPERINTENDENT met with pt at bedside. Pt states he plans to go home with his sister, Ирина ([phone]). SALES SUPERINTENDENT called Ирина, no answer, SALES SUPERINTENDENT left a message asking for her to call back regarding the d/c plan. PT reported that pt could go to SNF as his respiratory problems limit him to small amounts of movement. Due to pt's current drug use, pt is unlikely to be accepted with a SNF. SALES SUPERINTENDENT spoke with pt regarding HH, pt states he would go with [facility]. SALES SUPERINTENDENT will continue to follow. Assessment: Pt who is independent at baseline. Plan: Pt will likely d/c to his sisters home Ирина, , with HH. SALES SUPERINTENDENT has not yet referred pt to HH. SALES SUPERINTENDENT will continue to follow. SARA Shen
--- NOTE | 2016-04-16 16:42 | PROG NOTE ---
[address] [address] PROGRESS NOTE PATIENT: ADARSH DUNLAP : 1950 MR#: [id number] ADMIT: 04/09/2016 JOB ID: [id number] DATE: 04/16/2016 PULMONARY FOLLOW UP NOTE: PROBLEM: Influenza. SUBJECTIVE: Feeling better today. Eating a little bit better. Breathing a little more comfortably. Did have a little bit of dyspnea after he regurgitated some stomach contents which irritated his oropharynx. However, that resolved relatively quickly. Did cough up a little bit of phlegm after using the Acapella yesterday but that too is abating. Was able to walk a few feet to the bathroom today. Was somewhat dyspneic, especially getting up to use the bedside commode but overall making progress. OBJECTIVE: Temperature is 36.7. Pulse 77-89, respiratory rate 20-24, blood pressure 150/84. O2 sat on 2 L is 94%. General appearance: Has a bit more color. A bit more animated. Speaking more easily and the distorted speech is much clearer. Chest has better breath sounds though is still moderately diminished. Has a few crackles on the left anteriorly with an expiratory wheeze on the right. Able to take a deeper breath and is able to do so without coughing. Heart tones normal. Abdomen is soft. Nontender. LABORATORY DATA: Shows a white count of 8800, which continues to decrease with 70 polymorphonuclears, no bands, 15 lymphocytes, 12 monocytes. Hemoglobin relatively stable at 13.7. Platelet count starting to rise at 155,000. Sodium 135, potassium 4, chloride 96, CO2 is 29, BUN 18, creatinine 0.7. Calcium 8.7. Magnesium 2. Total bilirubin 0.6. Transaminases are normal as is alkaline phosphatase. Albumin somewhat low at 3. Procalcitonin 0.11 which suggests a systemic infection unlikely. Sputum Gram stain shows no polys with a few mixed normal marianna. Cultures are pending. Urine for the Streptococcus pneumoniae antigen as well as urine for Legionella antigen are both negative. ASSESSMENT: 1. Influenza. Improving nicely with regard to the viral infection. I think following the expected course. 2. Suspect much of his disability is due to comorbidities. Has an extensive drinking history. Also taking meth. Suspect he has significant underlying chronic obstructive pulmonary disease. I think down the road it would be nice to get at least spirometry. I spoke with his intended primary care physician. Arrangements made for followup as he will require followup likely with CT scan to assure ourselves that the "cavitating nodules" are not malignant or otherwise of concern. PLAN: 1. Continue present regimen. 2. Suggested that the patient take a proton pump inhibitor twice a day for two weeks to eliminate significant reflux to allow his inflamed airway to heal. 3. Follow up as outpatient both for underlying lung disease as well as the possible lung lesions.
--- NOTE | 2016-04-16 18:09 | NUR ---
Activity/anxiety/PO Pt agreed to sit up in chair at bedside for lunch, sat up for ~1 hour. He was then able to work PT this afternoon and had no reports of anxiety with activity, however, he did c/o exertional dyspnea which resolved with rest. PRN Xanax given as ordered and effective. Pt remains on 2L via NC. Pt is tolerating HTL fluids with no cough and reports he feels his swallow is "working better." Bed in lowest, locked position and call light remains in reach.
--- NOTE | 2016-04-16 19:12 | PCM.PNMED ---
Subjective Date of Service Apr 16, 2016 Subjective Patient was able to get out of bed and walk around his bed with physical therapy once getting back into bed and his O2 saturation was still above 90%. He is feeling a little bit better today, however he is asking for a speech therapy evaluation as he is having difficulty getting phlegm and/or food stuck in his throat and having difficulty breathing. Exam Vital Signs Vital Sign - Last Date Time Temp Pulse Resp B/P Pulse Ox O2 Delivery O2 Flow Rate FiO2 04/16/16 15:47 77 20 95 Nasal Cannula 2.00 04/16/16 13:28 36.6 150/84 Intake and Output 04/15/16 04/15/16 04/16/16 Cumulative From/Thru 14:59 22:59 06:59 04/09/16 11:13 - 04/16/16 06:58 Intake Total 1090 ml 537 ml 9443 ml Output Total 450 ml 450 ml 7600 ml Balance 640 ml 87 ml 1843 ml Intake Oral 840 ml 537 ml 7496 ml IV Total 250 ml 0 ml 1947 ml Output Urine Total 450 ml 450 ml 7600 ml # Voids 2 # Bowel Movements 1 0 2 Exam General: Patient is sitting up in bed much more comfortable today. HEENT: Head is atraumatic normocephalic. Eyes: Pupils are equally round and reactive to light and accommodation. Extraocular muscles are intact. Sclera are white anicteric. Subconjunctival mucosa is pink. Ears and nose are unremarkable. Oropharynx: There are no mucosal lesions, there is no thrush, there is no pharyngitis. Neck: Is supple, there are no nodes, or masses or tenderness. Chest: Is clearer to auscultation and percussion. There are decreased rales, and no rhonchi, wheezes or rubs. Heart: Rate, rhythm is regular. There is no murmur, rub or gallop. Abdomen: Good bowel sounds are present. Abdomen is soft, nontender, no organomegaly or masses were appreciated. Extremities: Are symmetrical and well perfused. There is no edema, there is no cellulitis, no rash. Neurologic: There are no focal neurological deficits. Cranial nerves II through XII are intact. There are no sensory or motor deficits. Psychiatric: Patients mood is calm and he is much more comfortable today. Genital: Deferred Rectal: Deferred Lab and Diagnostics Result Diagram: 04/16/16 0840 04/16/16 0840 X-Rays, CTs and MRIs Date of Service: 04/09/16 1118 PROCEDURE: X-RAY CHEST ONE VIEW, PORTABLE ([id number]) IMPRESSION: Large lung volumes bilaterally, COPD. No pneumothorax or pneumonia is found. Dictated by: Vijay Borja M.D. on 04/09/2016 at 11:46 Approved by: Vijay Borja M.D. on 04/09/2016 at 11:46 PROCEDURE: CT ANGIO CHEST PULMONARY EMBOLISM ([id number]) INDICATIONS: Hypoxia/Possible PE TECHNIQUE: After the administration of intravenous contrast, 2 mm thick sections acquired from the pulmonary apices to the posterior costophrenic angles. 3-dimensional maximum intensity projection (MIP) coronal and sagittal reformats were then acquired through the thorax. For radiation dose reduction, the following was used: automated exposure control, adjustment of mA and/or kV according to patient size. COMPARISON: None. FINDINGS: Image quality: Excellent. Pulmonary arteries: Pulmonary arteries are normal in size, and demonstrate no intraluminal filling defects to suggest central pulmonary embolism. Lungs and pleura: There is a 24 mm diameter fat containing left posterior hemidiaphragmatic hernia. Within the left lung base posteriorly, there is a 10 mm diameter nodule. Mild patchy dependent bilateral lower lobe opacities are present. There is a cavitary 7 mm diameter nodule within the superior segment right lower lobe. There is a cavitary 11 mm diameter nodule within the superior segment left lower lobe. No pleural effusions or pneumothorax. Central and peripheral airways are patent. Mediastinum: Heart size is normal, without pericardial effusion. No mediastinal or hilar adenopathy. Thoracic aorta is normal in caliber and enhancement. Esophagus is normal in caliber. There is a moderate hiatal hernia. Bones and chest wall: No suspicious bony lesions. Ribs and thoracic spine appear intact throughout. Thyroid gland is within normal limits. No axillary or supraclavicular adenopathy. Abdomen: Visualized portions of the upper abdomen demonstrate a nodular hepatic contour, suggestive of cirrhosis. Periesophageal collateral vessels are present. IMPRESSION: 1. No pulmonary embolus. 2. Bilateral lower lobe pneumonia. 3. Superimposed nodular densities within the bilateral lower lobes, some of which are cavitary; differential considerations include atypical microbacterial or fungal infection, septic emboli, and malignancy. Clinical assessment is recommended. Imaging followup is recommended as below. 4. Moderate hiatal hernia. 5. Cirrhosis and portal hypertension. Fleischner Society criteria for SOLID lung nodule followup. Nodule size (mm)Low-risk patientHigh-risk [id number] follow-up neededFollow-up at 12 mo; if no change, no further follow-up>[id number] CT at 12 mo; if no change, no further follow-up needed.Initial follow-up CT at 6-12 mo, then 18-24 mo if no change. >6-8Initial follow-up CT at 6-12 mo, then 18-24 mo if no change. Initial follow-up CT at 3-6 mo, then 9-12 mo and 24 mo if no change. > 8Follow-up CT at 3, 9, 24 mo. Or PET and/or biopsy.Same as for low-risk pts. Dictated by: Gian Mcgarry M.D. on 04/14/2016 at 15:06 Approved by: Gian Mcgarry M.D. on 04/14/2016 at 15:06 Cardiac Echo Impressions Echocardiogram Report Name: ADARSH DUNLAP Study Date: 04/15/2016 Height: 67 in Hospital Exam Location: [facility] Weight: 160 lb Gender: Male BSA: 1.8 m2 : 1950 Age: 65 yrs BP: 153/97 mm Hg Reason For Study: COPD Ordering Physician: HOSPITALIST [facility] Performed By: Dolly Ordonez Referring Physician: Dr. Red Sawant Interpretation Summary The left ventricle is not well visualized but grossly appears normal in size with normal left ventricular wall thickness. Left ventricular systolic function is probably normal with the ejection fraction roughly estimated to be 60-65% without obvious focal wall motion abnormalities noted but poor endocardial definition reduces the sensitivity for the detection of such. The E/A ratio is reversed, suggesting impaired early relaxation of the left ventricle or a reduced preload state. The right ventricle is not well visualized but grossly appears normal in size with probable normal systolic function. Pulmonary artery pressures cannot be estimated because of the lack of a measurable TR jet velocity. Left atrial size is normal and the right atrium not visualized. There is no obvious significant valvular heart disease. The ascending aorta is mildly enlarged. Assessment & Plan 65 year old male with history of COPD/emphysema, active smoker, meth user, alcohol abuse and medication non-compliance presents with report of 3 days of acute generalized weakness, body aches, productive cough, chills and worsening shortness of breath. # Acute COPD exacerbation, likely brought on by acute influenza A, present at the time of admission. ongoing -CT scan of the chest reveals bilateral lower lobe nodular pneumonia with some cavitary disease. Etiology is uncertain. -We we have obtained pulmonary consultation and infectious disease consultation. Dr. Francois was kind enough to see the patient today and his differential diagnosis includes: "The differential diagnosis here is broad and includes such possibilities as lung cancer, Lucy's granulomatosis, bacterial process with Staph or Pseudomonas (which I doubt given his lack of toxicity), right-sided endocarditis with septic emboli (which I also doubt based on lack of toxicity), actinomycosis or Nocardia, mycobacterial infection, fungal infection such as cryptococcosis, coccidioidomycosis, or histoplasmosis, or even pneumocystis carinii pneumonia (PCP)." -Patient has no signs or symptoms of infection with no fever, or further chills. Patient did have diaphoresis today when he could not expectorate phlegm but normally has not had any diaphoresis. He does have a cough today. She continues to have significant shortness of breath and hypoxia. -We will continue azithromycin as this may help his COPD as well as an atypical infection. We will likely change to by mouth at the time of discharge. Patient is having some dysphagia and may have difficulty swallowing a large pill. -We asked respiratory therapy to induce a sputum for sputum Gram stain C& S. However, the specimen was deemed inadequate due to predominance of epithelial cells and was discarded. - Continue on PO prednisone 40 mg a day - Continue on DuoNeb qid while awake and Albuterol prn - Continue supportive care and O2 NC -Dr. Francois has recommended the following testing: "Additional labs to be done here include an ANCA, blood cultures x2, crypto antigen, cocci antibodies, and histo urine antigen. Additional serologies here will include an HIV." - The HIV test was negative # Dysphagia -Speech therapy has evaluated the patient today is determined the patient does have difficulty with thin liquids and will give the patient a nectar thick diet patient is very pleased with this plan and will comply. # Acute influenza A -Continue Tamiflu x 10 days. Day 7 of 10. # Hypertension, chronic. poorly controlled at home - Lisinopril dose was increased -Continue to cover with prn IV Hydralazine for now - Will continue on Labetalol -started this admission # Acute on chronic respiratory failure with hypoxia -Likely is secondary to pulmonary process as described above with COPD exacerbation. -Rule out hypertensive cardiomyopathy -However echocardiogram fails to reveal any significant abnormalities # Hyponatremia, presumed acute, present on admission. Likely pre-renal and due to meds (Hctz). improved with IVF - Continue to hold HCTZ - Now resolved # History of alcohol abuse - denies any history of withdrawals or seizures - currently no evidence of withdrawal - Continue on CIWA protocol as needed # History of Hep C - Patient says finished course of treatment in the past - Patient will need further f/u by PCP and GI as outpatient # History of Meth use patient states he used to smoke it but that bothered his COPD so now he snorts it - Continue supportive care -Recommend substance abuse counseling # History of tobacco use - pt advised about quitting - nicotine patch daily prn Dispo: Pending respiratory status and consultants recommendations. As patient was able to get out of bed today and walk around his bed, without becoming hypoxic for the first time since admission, patient likely to be her another 1- 2 more days and then will likely be able to discharge home. Discuss case with patient's daughter at bedside at length. All questions were answered. Discussed with Dr. Francois at length and appreciate his input. Pain Evaluation: Adequate Pain Control GI Prophylaxis: Proton Pump Inhibitor VTE Prophylaxis: Sub-Q Heparin (Unfractionated) VTE Mechanical Devices: Intermittant Pneumatic CD Resuscitation Status: CPR: Attempt Resuscitation (discusse and verified with the patient) Luis Alberto Medina MD Apr 16, 2016 19:12
[2016-04-16] MEDS: hydrALAZINE 20 mg/mL Inj IV PRN (22:28)
[2016-04-17] VITALS (7 sets, daily range): BP systolic 142–169; BP diastolic 91–98; PULSE 78–96; RESP 18–24; O2SAT 91–94
[2016-04-17 06:19] LABS: Mean Corpuscular Hemoglobin 30.6 pg (27.0-35.0); Mean Corpuscular Volume 94 fL (81-100); Platelet Count 176 bil/L (150-400)
[2016-04-17 06:20] LABS: BASOPHILS % (AUTO) 0.2 % (0-3); EOSINOPHILS % (AUTO) 0.5 % (0-5); MONOCYTES % (AUTO) 14.1 % (4-12); NEUTROPHILS % (AUTO) 72.6 % (40-74)
[2016-04-17 06:26] LABS: Magnesium 1.8 mg/dL (1.6-2.6)
[2016-04-17] MEDS: Albuterol-Ipratropium 3 mL Inhalation Solution NEB SCH ×4 (08:01→19:57)
[2016-04-17] MEDS: Fluticasone 0.05% 15 Spray/2 Gm 16 Gm Nasal Spray NASAL SCH (08:31)
[2016-04-17] MEDS: Multivit-Miner-Folic Acid-Iron Tablet PO SCH (08:32)
[2016-04-17] MEDS: buPROPion SR 150 mg ER12 Tablet PO SCH ×2 (08:32→21:02)
[2016-04-17] MEDS: predniSONE 20 mg Tablet PO SCH (08:33)
[2016-04-17] MEDS: Pantoprazole 20 mg ER24 Tablet PO SCH ×2 (08:33→16:56)
[2016-04-17] MEDS: ALPRAZolam 0.5 mg Tablet PO PRN ×2 (08:34→21:02)
--- NOTE | 2016-04-17 15:47 | NUR ---
MIGEL signed. SARA Corado
--- NOTE | 2016-04-17 17:29 | NUR ---
Resp/activity Pt remains on 2L via NC. Per pt's report he feels better and has had no "anxiety attacks where I can't breathe" today. Pt is amb to BR with FWW/SBA and tolerating activity well. Some exertional dyspnea noted, pt does recover with rest. Pt remains on droplet precautions for (+) flu. Bed in lowest, locked position and call light in reach.
--- NOTE | 2016-04-17 19:40 | PROG NOTE ---
[address] [address] PROGRESS NOTE PATIENT: ADARSH DUNLAP : 1950 MR#: [id number] ADMIT: 04/09/2016 JOB ID: [id number] DATE: 04/17/2016 PROBLEM: 1. Influenza. 2. Reactive airways disease. 3. Alcohol abuse. SUBJECTIVE: The patient is sleeping. Review of chart indicates the patient was doing well. Therefore decided not to awaken the patient. OBJECTIVE: Vital signs noted. Afebrile. O2 sat on 2 liters is 92% to 95%. The patient asleep. Snoring. Chest: Fairly good breath sounds anteriorly. There is diffuse wheezing throughout the entire length of exhalation. A few scattered crackles. LABORATORY DATA: Lytes show sodium 135, potassium 3.8, chloride 95, CO2 is 31, BUN 12, creatinine 0.6. Procalcitonin is undetectable. Blood cultures from 48 hours previously show no growth. Sputum Gram stain shows no polys with some mixed normal marianna. Culture growing only normal marianna. ASSESSMENT: Pulmonary status is slowly improving. Oxygenation significantly improved with acceptable O2 saturations on decreasing flows of oxygen. Currently has a O2 sats in the low to mid 90s on O2 at 2 L a minute. PLAN: Continue current regimen.
[2016-04-17] MEDS: guaiFENesin DM 200-20 mg/10 mL Syrup PO PRN (21:01)
--- NOTE | 2016-04-17 21:44 | PCM.PNMED ---
Subjective Date of Service Apr 17, 2016 Subjective Patient continues to feel a little bit better again today Exam Vital Signs Vital Sign - Last Date Time Temp Pulse Resp B/P Pulse Ox O2 Delivery O2 Flow Rate FiO2 04/17/16 20:51 36.6 96 22 142/98 91 Nasal Cannula 2.00 Intake and Output 04/16/16 04/16/16 04/17/16 Cumulative From/Thru 15:00 23:00 07:00 04/09/16 11:13 - 04/17/16 07:00 Intake Total 299 ml 156 ml 400 ml 22405 ml Output Total 750 ml 550 ml 8900 ml Balance 299 ml -594 ml -150 ml 1398 ml Intake Oral 156 ml 400 ml 8052 ml IV Total 299 ml 2246 ml Output Urine Total 750 ml 550 ml 8900 ml # Voids 2 4 # Bowel Movements 1 1 4 Exam General: Patient is sitting up in bed. He appears comfortable again today HEENT: Head is atraumatic normocephalic. Eyes: Pupils are equally round and reactive to light and accommodation. Extraocular muscles are intact. Sclera are white anicteric. Subconjunctival mucosa is pink. Ears and nose are unremarkable. Oropharynx: There are no new mucosal lesions, there is no thrush , there is no pharyngitis. Neck: Is supple, there are no nodes, or masses or tenderness. Chest: Is clearer to auscultation and percussion. There are decreased rales, and no rhonchi, wheezes or rubs. Heart: Rate, rhythm is regular. There is no new murmur, rub or gallop. Abdomen: Good bowel sounds are present. Abdomen is soft, nontender, no organomegaly or masses were appreciated. Extremities: Are symmetrical and well perfused. There is no edema, there is no cellulitis, no rash. Neurologic: There are no focal neurological deficits. Cranial nerves II through XII are intact. There are no sensory or motor deficits. Psychiatric: Patients mood is calm and he is much more comfortable today. Genital: Deferred Rectal: Deferred Lab and Diagnostics Result Diagram: 04/17/16 0505 04/17/16 0505 X-Rays, CTs and MRIs Date of Service: 04/09/16 1118 PROCEDURE: X-RAY CHEST ONE VIEW, PORTABLE ([id number]) IMPRESSION: Large lung volumes bilaterally, COPD. No pneumothorax or pneumonia is found. Dictated by: Vijay Borja M.D. on 04/09/2016 at 11:46 Approved by: Vijay Borja M.D. on 04/09/2016 at 11:46 PROCEDURE: CT ANGIO CHEST PULMONARY EMBOLISM ([id number]) INDICATIONS: Hypoxia/Possible PE TECHNIQUE: After the administration of intravenous contrast, 2 mm thick sections acquired from the pulmonary apices to the posterior costophrenic angles. 3-dimensional maximum intensity projection (MIP) coronal and sagittal reformats were then acquired through the thorax. For radiation dose reduction, the following was used: automated exposure control, adjustment of mA and/or kV according to patient size. COMPARISON: None. FINDINGS: Image quality: Excellent. Pulmonary arteries: Pulmonary arteries are normal in size, and demonstrate no intraluminal filling defects to suggest central pulmonary embolism. Lungs and pleura: There is a 24 mm diameter fat containing left posterior hemidiaphragmatic hernia. Within the left lung base posteriorly, there is a 10 mm diameter nodule. Mild patchy dependent bilateral lower lobe opacities are present. There is a cavitary 7 mm diameter nodule within the superior segment right lower lobe. There is a cavitary 11 mm diameter nodule within the superior segment left lower lobe. No pleural effusions or pneumothorax. Central and peripheral airways are patent. Mediastinum: Heart size is normal, without pericardial effusion. No mediastinal or hilar adenopathy. Thoracic aorta is normal in caliber and enhancement. Esophagus is normal in caliber. There is a moderate hiatal hernia. Bones and chest wall: No suspicious bony lesions. Ribs and thoracic spine appear intact throughout. Thyroid gland is within normal limits. No axillary or supraclavicular adenopathy. Abdomen: Visualized portions of the upper abdomen demonstrate a nodular hepatic contour, suggestive of cirrhosis. Periesophageal collateral vessels are present. IMPRESSION: 1. No pulmonary embolus. 2. Bilateral lower lobe pneumonia. 3. Superimposed nodular densities within the bilateral lower lobes, some of which are cavitary; differential considerations include atypical microbacterial or fungal infection, septic emboli, and malignancy. Clinical assessment is recommended. Imaging followup is recommended as below. 4. Moderate hiatal hernia. 5. Cirrhosis and portal hypertension. Fleischner Society criteria for SOLID lung nodule followup. Nodule size (mm)Low-risk patientHigh-risk [id number] follow-up neededFollow-up at 12 mo; if no change, no further follow-up>[id number] CT at 12 mo; if no change, no further follow-up needed.Initial follow-up CT at 6-12 mo, then 18-24 mo if no change. >6-8Initial follow-up CT at 6-12 mo, then 18-24 mo if no change. Initial follow-up CT at 3-6 mo, then 9-12 mo and 24 mo if no change. > 8Follow-up CT at 3, 9, 24 mo. Or PET and/or biopsy.Same as for low-risk pts. Dictated by: Gian Mcgarry M.D. on 04/14/2016 at 15:06 Approved by: Gian Mcgarry M.D. on 04/14/2016 at 15:06 Cardiac Echo Impressions Echocardiogram Report Name: ADARSH DUNLAP Study Date: 04/15/2016 Height: 67 in Hospital Exam Location: [facility] Weight: 160 lb Gender: Male BSA: 1.8 m2 : 1950 Age: 65 yrs BP: 153/97 mm Hg Reason For Study: COPD Ordering Physician: HOSPITALIST [facility] Performed By: Dolly Ordonez Referring Physician: Dr. Red Sawant Interpretation Summary The left ventricle is not well visualized but grossly appears normal in size with normal left ventricular wall thickness. Left ventricular systolic function is probably normal with the ejection fraction roughly estimated to be 60-65% without obvious focal wall motion abnormalities noted but poor endocardial definition reduces the sensitivity for the detection of such. The E/A ratio is reversed, suggesting impaired early relaxation of the left ventricle or a reduced preload state. The right ventricle is not well visualized but grossly appears normal in size with probable normal systolic function. Pulmonary artery pressures cannot be estimated because of the lack of a measurable TR jet velocity. Left atrial size is normal and the right atrium not visualized. There is no obvious significant valvular heart disease. The ascending aorta is mildly enlarged. Assessment & Plan 65 year old male with history of COPD/emphysema, active smoker, meth user, alcohol abuse and medication non-compliance presents with report of 3 days of acute generalized weakness, body aches, productive cough, chills and worsening shortness of breath. # Acute COPD exacerbation, likely brought on by acute influenza A, present at the time of admission. ongoing, however beginning to improve over the last 48 hours. -CT scan of the chest reveals bilateral lower lobe nodular pneumonia with some cavitary disease. Etiology is uncertain. -We we have obtained pulmonary consultation and infectious disease consultation. Dr. Francois was kind enough to see the patient today and his differential diagnosis includes: "The differential diagnosis here is broad and includes such possibilities as lung cancer, Lucy's granulomatosis, bacterial process with Staph or Pseudomonas (which I doubt given his lack of toxicity), right-sided endocarditis with septic emboli (which I also doubt based on lack of toxicity), actinomycosis or Nocardia, mycobacterial infection, fungal infection such as cryptococcosis, coccidioidomycosis, or histoplasmosis, or even pneumocystis carinii pneumonia (PCP)." -Patient has no signs or symptoms of infection with no fever, or further chills. Patient did have diaphoresis today when he could not expectorate phlegm but normally has not had any diaphoresis. He does have a cough today. She continues to have significant shortness of breath and hypoxia. -We will continue azithromycin as this may help his COPD as well as an atypical infection. We will likely change to by mouth at the time of discharge. Patient is having some dysphagia and may have difficulty swallowing a large pill. -We asked respiratory therapy to induce a sputum for sputum Gram stain C& S. However, the specimen was deemed inadequate due to predominance of epithelial cells and was discarded. - Continue on PO prednisone 40 mg a day - Continue on DuoNeb qid while awake and Albuterol prn - Continue supportive care and O2 NC -Dr. Francois has recommended the following testing: "Additional labs to be done here include an ANCA, blood cultures x2, crypto antigen, cocci antibodies, and histo urine antigen. Additional serologies here will include an HIV." - The HIV test was negative -Discussed with Dr. Vic Feliciano in pulmonary and he agrees with current treatment plan. # Dysphagia -Speech therapy has evaluated the patient today is determined the patient does have difficulty with thin liquids and will give the patient a nectar thick diet patient is very pleased with this plan and will comply. # Acute influenza A -Continue Tamiflu x 10 days. Day 7 of 10. # Hypertension, chronic. poorly controlled at home - Lisinopril dose was increased -Continue to cover with prn IV Hydralazine for now - Will continue on Labetalol -started this admission # Acute on chronic respiratory failure with hypoxia -Likely is secondary to pulmonary process as described above with COPD exacerbation. -Rule out hypertensive cardiomyopathy -However echocardiogram fails to reveal any significant abnormalities # Hyponatremia, presumed acute, present on admission. Likely pre-renal and due to meds (Hctz). improved with IVF - Continue to hold HCTZ - Now resolved # History of alcohol abuse - denies any history of withdrawals or seizures - currently no evidence of withdrawal - Continue on CIWA protocol as needed # History of Hep C - Patient says finished course of treatment in the past - Patient will need further f/u by PCP and GI as outpatient # History of Meth use patient states he used to smoke it but that bothered his COPD so now he snorts it - Continue supportive care -Recommend substance abuse counseling -Counseled patient and he agrees that he needs to quit and may do so after this frightening experience # History of tobacco use - pt advised about quitting - nicotine patch daily prn Dispo: Pending respiratory status and consultants recommendations. As patient was able to get out of bed yesterday and walk around his bed, without becoming hypoxic for the first time since admission, patient likely to be her another 1- 2 more days and then will likely be able to discharge home. Pain Evaluation: Adequate Pain Control GI Prophylaxis: Proton Pump Inhibitor VTE Prophylaxis: Sub-Q Heparin (Unfractionated) VTE Mechanical Devices: Intermittant Pneumatic CD Resuscitation Status: CPR: Attempt Resuscitation (discusse and verified with the patient) Luis Alberto Medina MD Apr 17, 2016 21:44
[2016-04-18] VITALS (8 sets, daily range): BP systolic 135–193; BP diastolic 75–112; PULSE 66–95; RESP 18–24; O2SAT 90–98
[2016-04-18 00:14] LABS: Angiotensin-Converting Enzyme < 15 U/L (14-82)
[2016-04-18 06:09] LABS: BASOPHILS % (AUTO) 0.1 % (0-3); EOSINOPHILS % (AUTO) 0.9 % (0-5); MONOCYTES % (AUTO) 11.1 % (4-12); Mean Corpuscular Hemoglobin 30.4 pg (27.0-35.0); Mean Corpuscular Volume 94.2 fL (81-100); NEUTROPHILS % (AUTO) 78.3 % (40-74); Platelet Count 187 bil/L (150-400)
[2016-04-18] MEDS: Albuterol-Ipratropium 3 mL Inhalation Solution NEB SCH ×4 (08:12→21:00)
[2016-04-18] MEDS: guaiFENesin DM 200-20 mg/10 mL Syrup PO PRN ×2 (08:47→17:54)
[2016-04-18] MEDS: buPROPion SR 150 mg ER12 Tablet PO SCH ×2 (08:48→19:44)
[2016-04-18] MEDS: Multivit-Miner-Folic Acid-Iron Tablet PO SCH (08:48)
[2016-04-18] MEDS: predniSONE 20 mg Tablet PO SCH (08:48)
[2016-04-18] MEDS: Pantoprazole 20 mg ER24 Tablet PO SCH ×2 (08:48→17:53)
[2016-04-18] MEDS: Fluticasone 0.05% 15 Spray/2 Gm 16 Gm Nasal Spray NASAL SCH (08:48)
[2016-04-18] MEDS: ALPRAZolam 0.5 mg Tablet PO PRN ×2 (08:59→17:53)
--- NOTE | 2016-04-18 14:24 | NUR ---
Social Work-readiness for discharge: Data:EMR Reviewed. Pt is on day 9 of hospitalization for COPD exacerbation per H&P. Pt is not medically stable, MD anticipates the next day or two. PT continues to recommend SNF, pt only able to ambulate a few feet. SW followed up with pt at bedside to discuss, SW role explained. SW explained about SNF recommended and explained pt's drug use will likely be a barrier to SNF, but referral can be sent out to see. SW explained if SNF is not able to accept pt then he will have to return home with HH services, referral made to [facility] due to pt's preference. Pt states he will be returning home with his sister Ирина and requests SW to call her to discuss SNF options because he does not know the facilities, SNF and HH choice list provided. MANJU placed a call to Ирина [phone] and left message, awaiting a return call. Paperwork in the chart. SW will continue to follow. Assessment:SNF vs home with HH. Plan:SNF vs home with sister and [facility] for RN,PT, and OT. SW has left message for sister Ирина, awaiting a return call. Paperwork in the chart. SW will continue to follow. SARA Corado Addendum: 04/18/16 at 1555 by DONN SMITH MANJU received a call back from pt's sister Ирина [phone] or [phone] to discuss discharge planning, SW role explained. Sister would like referrals to [facility], [facility], and [facility]. SW explained that pt's recently drug use may be a barrier to SNF. SW explained that if SNF does not accept pt then pt will have to return home with HH, sister states an understanding. SW provided access in [email or web address] for all three SNFs and faxed [facility] and [facility]. Paperwork place in the chart. MANJU will continue to follow. SARA Corado
--- NOTE | 2016-04-18 14:26 | NUR ---
SOB/Cough Patient reporting increased shortness of breath with coughing. Patient reporting he has "difficulty getting his breath back once he stops coughing and becomes very anxious and panicky at this time". Anti anxiety medication given per pt request, with good result. Patient also reporting that he has "this thick crap, stuck in my throat". Guaifenesin given with minimal effect. Addendum: 04/18/16 at 1825 by SARMAD BELL RN Patient reporting that phlegm is starting to break up and he is feeling better.
--- NOTE | 2016-04-18 15:50 | PCM.PNMED ---
Subjective Date of Service Apr 18, 2016 Subjective Patient is sitting up on the side of the bed when I entered the room today in no distress. He had his feet on the floor and he stated that he was having trouble getting phlegm that was stuck in the back of the throat up again today but had just gotten over that episode. He has no other new complaints. He is profoundly weak and states that he is in no shape to go home today. He was receptive to possibly going to a penitentiary facility for rehabilitation prior to going home. Exam Vital Signs Vital Sign - Last Date Time Temp Pulse Resp B/P Pulse Ox O2 Delivery O2 Flow Rate FiO2 04/18/16 13:02 88 18 91 Nasal Cannula 2.00 04/18/16 10:04 36.7 135/75 Intake and Output 04/17/16 04/17/16 04/18/16 Cumulative From/Thru 15:00 23:00 07:00 04/09/16 11:13 - 04/18/16 05:10 Intake Total 307 ml 948 ml 437 ml 61150 ml Output Total 1125 ml 650 ml 93100 ml Balance 307 ml -177 ml -213 ml 1315 ml Intake Oral 948 ml 437 ml 9437 ml IV Total 307 ml 2553 ml Output Urine Total 1125 ml 650 ml 42014 ml # Voids 4 # Bowel Movements 0 0 4 Exam General: Patient is sitting up in bed. He appears comfortable again today HEENT: Head is atraumatic normocephalic. Eyes: Pupils are equally round and reactive to light and accommodation. Extraocular muscles are intact. Sclera are white anicteric. Subconjunctival mucosa is pink. Ears and nose are unremarkable. Oropharynx: There are no new mucosal lesions, there is no thrush , there is no pharyngitis. Neck: Is supple, there are no nodes, or masses or tenderness. Chest: Is clearer to auscultation and percussion. There are decreased rales, and no rhonchi, wheezes or rubs. Still overall decreased breath sounds Heart: Rate, rhythm is regular. There is no new murmur, rub or gallop. Abdomen: Good bowel sounds are present. Abdomen is soft, nontender, no organomegaly or masses were appreciated. Extremities: Are symmetrical and well perfused. There is no edema, there is no cellulitis, no rash. Neurologic: There are no focal neurological deficits. Cranial nerves II through XII are intact. There are no sensory or motor deficits. Psychiatric: Patients mood is calm and he is much more comfortable today. Genital: Deferred Rectal: Deferred Lab and Diagnostics Result Diagram: 04/18/16 0550 04/18/16 0550 X-Rays, CTs and MRIs Date of Service: 04/09/16 1118 PROCEDURE: X-RAY CHEST ONE VIEW, PORTABLE ([id number]) IMPRESSION: Large lung volumes bilaterally, COPD. No pneumothorax or pneumonia is found. Dictated by: Vijay Borja M.D. on 04/09/2016 at 11:46 Approved by: Vijay Borja M.D. on 04/09/2016 at 11:46 PROCEDURE: CT ANGIO CHEST PULMONARY EMBOLISM ([id number]) INDICATIONS: Hypoxia/Possible PE TECHNIQUE: After the administration of intravenous contrast, 2 mm thick sections acquired from the pulmonary apices to the posterior costophrenic angles. 3-dimensional maximum intensity projection (MIP) coronal and sagittal reformats were then acquired through the thorax. For radiation dose reduction, the following was used: automated exposure control, adjustment of mA and/or kV according to patient size. COMPARISON: None. FINDINGS: Image quality: Excellent. Pulmonary arteries: Pulmonary arteries are normal in size, and demonstrate no intraluminal filling defects to suggest central pulmonary embolism. Lungs and pleura: There is a 24 mm diameter fat containing left posterior hemidiaphragmatic hernia. Within the left lung base posteriorly, there is a 10 mm diameter nodule. Mild patchy dependent bilateral lower lobe opacities are present. There is a cavitary 7 mm diameter nodule within the superior segment right lower lobe. There is a cavitary 11 mm diameter nodule within the superior segment left lower lobe. No pleural effusions or pneumothorax. Central and peripheral airways are patent. Mediastinum: Heart size is normal, without pericardial effusion. No mediastinal or hilar adenopathy. Thoracic aorta is normal in caliber and enhancement. Esophagus is normal in caliber. There is a moderate hiatal hernia. Bones and chest wall: No suspicious bony lesions. Ribs and thoracic spine appear intact throughout. Thyroid gland is within normal limits. No axillary or supraclavicular adenopathy. Abdomen: Visualized portions of the upper abdomen demonstrate a nodular hepatic contour, suggestive of cirrhosis. Periesophageal collateral vessels are present. IMPRESSION: 1. No pulmonary embolus. 2. Bilateral lower lobe pneumonia. 3. Superimposed nodular densities within the bilateral lower lobes, some of which are cavitary; differential considerations include atypical microbacterial or fungal infection, septic emboli, and malignancy. Clinical assessment is recommended. Imaging followup is recommended as below. 4. Moderate hiatal hernia. 5. Cirrhosis and portal hypertension. Fleischner Society criteria for SOLID lung nodule followup. Nodule size (mm)Low-risk patientHigh-risk [id number] follow-up neededFollow-up at 12 mo; if no change, no further follow-up>[id number] CT at 12 mo; if no change, no further follow-up needed.Initial follow-up CT at 6-12 mo, then 18-24 mo if no change. >6-8Initial follow-up CT at 6-12 mo, then 18-24 mo if no change. Initial follow-up CT at 3-6 mo, then 9-12 mo and 24 mo if no change. > 8Follow-up CT at 3, 9, 24 mo. Or PET and/or biopsy.Same as for low-risk pts. Dictated by: Gian Mcgarry M.D. on 04/14/2016 at 15:06 Approved by: Gian Mcgarry M.D. on 04/14/2016 at 15:06 Cardiac Echo Impressions Echocardiogram Report Name: ADARSH DUNLAP Study Date: 04/15/2016 Height: 67 in Hospital Exam Location: [facility] Weight: 160 lb Gender: Male BSA: 1.8 m2 : 1950 Age: 65 yrs BP: 153/97 mm Hg Reason For Study: COPD Ordering Physician: HOSPITALIST [facility] Performed By: Dolly Ordonez Referring Physician: Dr. Red Sawant Interpretation Summary The left ventricle is not well visualized but grossly appears normal in size with normal left ventricular wall thickness. Left ventricular systolic function is probably normal with the ejection fraction roughly estimated to be 60-65% without obvious focal wall motion abnormalities noted but poor endocardial definition reduces the sensitivity for the detection of such. The E/A ratio is reversed, suggesting impaired early relaxation of the left ventricle or a reduced preload state. The right ventricle is not well visualized but grossly appears normal in size with probable normal systolic function. Pulmonary artery pressures cannot be estimated because of the lack of a measurable TR jet velocity. Left atrial size is normal and the right atrium not visualized. There is no obvious significant valvular heart disease. The ascending aorta is mildly enlarged. Assessment & Plan 65 year old male with history of COPD/emphysema, active smoker, meth user, alcohol abuse and medication non-compliance presents with report of 3 days of acute generalized weakness, body aches, productive cough, chills and worsening shortness of breath. # Acute COPD exacerbation, likely brought on by acute influenza A, present at the time of admission. ongoing, however beginning to improve over the last 48 hours. -CT scan of the chest reveals bilateral lower lobe nodular pneumonia with some cavitary disease. Etiology is uncertain. -We we have obtained pulmonary consultation and infectious disease consultation. Dr. Francois was kind enough to see the patient today and his differential diagnosis includes: "The differential diagnosis here is broad and includes such possibilities as lung cancer, Lucy's granulomatosis, bacterial process with Staph or Pseudomonas (which I doubt given his lack of toxicity), right-sided endocarditis with septic emboli (which I also doubt based on lack of toxicity), actinomycosis or Nocardia, mycobacterial infection, fungal infection such as cryptococcosis, coccidioidomycosis, or histoplasmosis, or even pneumocystis carinii pneumonia (PCP)." -Patient has no signs or symptoms of infection with no fever, or further chills. Patient did have diaphoresis when he could not expectorate phlegm but normally has not had any diaphoresis. He does have a cough. He continues to have significant shortness of breath. However, hypoxia. Has improved -We will continue azithromycin as this may help his COPD as well as an atypical infection. We will likely change to by mouth at the time of discharge. Patient is having some dysphagia and may have difficulty swallowing a large pill. -We asked respiratory therapy to induce a sputum for sputum Gram stain C& S. However, the specimen was deemed inadequate due to predominance of epithelial cells and was discarded. - Continue on PO prednisone 40 mg a day until ready to discharge and then will begin tapering. - Continue on DuoNeb qid while awake and Albuterol prn - Continue supportive care and O2 NC -Dr. Francois has recommended the following testing: "Additional labs to be done here include an ANCA, blood cultures x2, crypto antigen, cocci antibodies, and histo urine antigen. Additional serologies here will include an HIV." - The HIV test was negative -Discussed with Dr. Vic Feliciano in pulmonary and he agrees with current treatment plan. # Dysphagia -Speech therapy has evaluated the patient today is determined the patient does have difficulty with thin liquids and will give the patient a nectar thick diet patient is very pleased with this plan and will comply. # Acute influenza A -Continue Tamiflu x 10 days. Day 9 10. # Hypertension, chronic. poorly controlled at home - Lisinopril dose was increased -Continue to cover with prn IV Hydralazine for now - Will continue on Labetalol -started this admission # Acute on chronic respiratory failure with hypoxia -Likely is secondary to pulmonary process as described above with COPD exacerbation. -Rule out hypertensive cardiomyopathy due to noncompliance with blood pressure medications at home -However echocardiogram fails to reveal any significant abnormalities # Hyponatremia, presumed acute, present on admission. Likely pre-renal and due to meds (Hctz). improved with IVF - Continue to hold HCTZ - Now resolved # History of alcohol abuse - denies any history of withdrawals or seizures - currently no evidence of withdrawal - Continue on CIWA protocol as needed # History of Hep C - Patient says finished course of treatment in the past - Patient will need further f/u by PCP and GI as outpatient # History of Meth use patient states he used to smoke it but that bothered his COPD so now he snorts it while he is drinking beer - Continue supportive care -Recommend substance abuse counseling -Counseled patient and he agrees that he needs to quit and may do so after this frightening experience # History of tobacco use - pt advised about quitting - nicotine patch daily prn Dispo: Pending respiratory status and consultants recommendations. As patient was able to get out of bed 04/16/2016 and walk around his bed, without becoming hypoxic for the first time since admission, patient likely to be her another 1- 2 more days and then will likely be able to discharged. Patient believes he still too weak to be discharged home and is agreeable to go to a penitentiary facility for rehabilitation. Pain Evaluation: Adequate Pain Control GI Prophylaxis: Proton Pump Inhibitor VTE Prophylaxis: Sub-Q Heparin (Unfractionated) VTE Mechanical Devices: Intermittant Pneumatic CD Resuscitation Status: CPR: Attempt Resuscitation (discusse and verified with the patient) Adam,Christopher E MD Apr 18, 2016 15:50
[2016-04-18] MEDS: hydrALAZINE 20 mg/mL Inj IV PRN (18:00)
[2016-04-19 03:53] VITALS: BP 199/128; PULSE 63; RESP 20; O2SAT 93
[2016-04-19] MEDS: ALPRAZolam 0.5 mg Tablet PO PRN ×2 (04:04→12:49)
[2016-04-19] MEDS: guaiFENesin DM 200-20 mg/10 mL Syrup PO PRN (04:04)
[2016-04-19] MEDS: hydrALAZINE 20 mg/mL Inj IV PRN (04:04)
[2016-04-19 05:20] VITALS: BP 157/91
[2016-04-19 06:19] LABS: BASOPHILS % (AUTO) 0.1 % (0-3); EOSINOPHILS % (AUTO) 0.6 % (0-5); MONOCYTES % (AUTO) 9.5 % (4-12); Mean Corpuscular Hemoglobin 30.4 pg (27.0-35.0); Mean Corpuscular Volume 94.6 fL (81-100); NEUTROPHILS % (AUTO) 81.3 % (40-74); Platelet Count 201 bil/L (150-400)
[2016-04-19] MEDS ORDERED: Potassium Chloride 20 mEq SR Tablet PO ONE (07:55)
[2016-04-19 08:27] VITALS: PULSE 83; RESP 18; O2SAT 92
[2016-04-19] MEDS: Albuterol-Ipratropium 3 mL Inhalation Solution NEB SCH ×3 (08:27→16:26)
[2016-04-19] MEDS ORDERED: predniSONE 20 mg Tablet PO SCH (08:30)
[2016-04-19] MEDS: Multivit-Miner-Folic Acid-Iron Tablet PO SCH (08:54)
[2016-04-19] MEDS: Pantoprazole 20 mg ER24 Tablet PO SCH (08:54)
[2016-04-19] MEDS: buPROPion SR 150 mg ER12 Tablet PO SCH (08:54)
[2016-04-19] MEDS: Fluticasone 0.05% 15 Spray/2 Gm 16 Gm Nasal Spray NASAL SCH (08:55)
--- NOTE | 2016-04-19 10:34 | NUR ---
[facility] cannot accept pt. Kiera Mcguire,GIMP BUTTONHOLE MACHINE OPERATOR Addendum: 04/19/16 at 1044 by MINAL KIM CM Called and left message for [facility] review. Updated GIMP BUTTONHOLE MACHINE OPERATOR
--- NOTE | 2016-04-19 11:14 | NUR ---
[facility] cannot accept pt. Kiera Mcguire MSW
--- NOTE | 2016-04-19 12:21 | NUR ---
[facility] cannot accept pt. Kiera Mcguire,SURVEYOR INSTRUMENT ASSISTANT
[2016-04-19 12:56] VITALS: PULSE 83; RESP 20; O2SAT 92
--- NOTE | 2016-04-19 13:01 | NUR ---
Social Work-readiness for discharge: Data:EMR reviewed. Pt is on day 10 of hospitalization for COPD exacerbation. PT continues to recommend SNF placement, pt able to ambulate about 30ft with Fww SBA. MANJU explained that all SNF's that have been faxed were not able to accept pt. MANJU placed a call to sister Ирина to discuss. SW explained SNF is not an option at discharge, all have declined. Sister Ирина is in agreement to have pt discharge home with her and have HH services. Referral has been made to [facility] for RN, PT,OT. PT also recommending Fww. Ирина confirms she has fww at her home for pt to use. RT to evaluate pt for home O2 needs. Pt to discharge to sister's home address: [address] [place] [address]. MANJU then received a call from pt's other sister Adriana concerned about lack of SNF options. Adriana states that she would like SW to find a SNF that will accept pt. MANJU explained due to pt's recent drug use, facilities are unwilling to accept pt, three have already declined pt. MANJU explained to Adriana that HH services have been set up for pt at home to have them come and see him. MANJU updated pt at bedside who is agreeable to plan. F2F in folder. SW will continue to follow. Assessment:Pt who would benefit from HH. Plan:Pt to discharge home with sister Ирина when medically stable via POV. SNF's have declined pt due to concerns of his history of drug use. Referral has been sent to [facility] for RN,PT, OT. F2F in folder. SW will continue to follow. Kiera Mcguire MSW
[2016-04-19 14:43] VITALS: BP 154/97; PULSE 75; RESP 20; O2SAT 90
--- NOTE | 2016-04-19 15:13 | PCM.DIMED ---
Discharge Instructions Date of Service Apr 19, 2016 Dates of Hospitalization Apr 09, 2016 at 12:44 Discharge Diagnosis Discharge Diagnosis Influenza A with Pulmonary cavitary disease and acute on chronic respiratory failure along with hepatitis C and cirrhosis Diet Heart Healthy Activity No restrictions (May increase activity gradually as tolerated.) Call your provider Fever or Chills, Shortness of breath, Bleeding, Chest pain, Vomitting, Excessive diarrhea, Weakness (unilateral), Other Patient Instructions Follow-up Provider: Thai De La Torre MD Follow-up with PCP in: 1 week Provider: Arvind Francois MD Follow-up in: 2 weeks Mid-level Provider (F9): Keegan Bautista MD Follow-up with Mid-level in: 4 weeks (For Hepatitis C evaluation and treatment) Luis Alberto Medina MD Apr 19, 2016 15:13
--- NOTE | 2016-04-19 15:13 | NUR ---
Social Work- discharge: Data:EMR reviewed. Pt is on day 10 of hospitalization for COPD exacerbation. Pt is ready to discharge home today. PT continues to recommend SNF placement, pt able to ambulate about 30ft with Fww SBA. MANJU explained that all SNF's that have been faxed were not able to accept pt to both pt and sister, both state an understanding. This is due to pt's recently drug use. MANJU spoke with [facility] liaison and provided him with F2F and orders for RN,PT, and OT. Jerry confirms they have a start date likely on Friday 04/21, MANJU informed the daughter of this information. RT has set pt up with home O2 through [facility] and sister Ирина has Fww for pt to use. MANJU called sister Ирина and provided her with update. Ирина agreeable to plan and will be here around 1630 to provide transport home for pt to her home. MANJU provided update to RN. All updated and agreeable to plan. Assessment:Pt who would benefit from HH. Plan:Pt to discharge home with Sister Ирина today via POV. MANJU has arranged [facility] for RN,PT, and OT, orders and F2F have been faxed in and [facility] Liaison aware of discharge. Pt does not qualify for SNF due to recent drug use, all SNF's have denied pt. RT has set up home O2 through [facility]. All updated and agreeable to plan. SARA Corado
[2016-04-19] MEDS ORDERED: PREN1TAB25 PO (15:25)
[2016-04-19] MEDS ORDERED: PRD5T PO (15:25)
[2016-04-19] MEDS ORDERED: PRE10 PO (15:25)
[2016-04-19] MEDS ORDERED: ZIT250 PO (15:25)
[2016-04-19] MEDS ORDERED: PRED-508 PO (15:25)
[2016-04-19] MEDS ORDERED: PRE20 PO (15:25)
[2016-04-19] MEDS ORDERED: LABE100T4 PO (15:25)
[2016-04-19] MEDS ORDERED: Thiamine PO (15:25)
[2016-04-19] MEDS ORDERED: POLY17PO6 PO (15:25)
[2016-04-19] MEDS ORDERED: ALPR0.5T8 PO (16:12)
[2016-04-19] MEDS ORDERED: BUPR-97 PO (16:12)
[2016-04-19] MEDS ORDERED: SYMINH INHALATION (16:12)
[2016-04-19] MEDS ORDERED: GUAI600T2 PO (16:12)
[2016-04-19] MEDS ORDERED: LISI-610 PO (16:12)
[2016-04-19 16:26] VITALS: PULSE 82; RESP 20; O2SAT 94
--- NOTE | 2016-04-19 17:09 | PCM.DC.MED ---
Discharge Summary Date of Service Apr 19, 2016 Dates of Hospitalization Date of Hospital Admission Apr 09, 2016 at 12:44 Date of Discharge: Apr 19, 2016 Providers: Admitting Physician: Sp Phillips Primary Care Physician: Red Sawant MD Attending Physician: Sp Phillips Diagnosis at Time of Discharge Diagnosis at Time of Discharge Influenza A with Pulmonary cavitary disease and acute on chronic respiratory failure along with hepatitis C and cirrhosis Consultations Infectious disease with Dr. Arvind Francois and pulmonary with Dr. Vic Feliciano. Procedures XRay, CTs & MRIs Date of Service: 04/09/16 1118 PROCEDURE: X-RAY CHEST ONE VIEW, PORTABLE ([id number]) IMPRESSION: Large lung volumes bilaterally, COPD. No pneumothorax or pneumonia is found. Dictated by: Vijay Borja M.D. on 04/09/2016 at 11:46 Approved by: Vijay Borja M.D. on 04/09/2016 at 11:46 PROCEDURE: CT ANGIO CHEST PULMONARY EMBOLISM ([id number]) INDICATIONS: Hypoxia/Possible PE TECHNIQUE: After the administration of intravenous contrast, 2 mm thick sections acquired from the pulmonary apices to the posterior costophrenic angles. 3-dimensional maximum intensity projection (MIP) coronal and sagittal reformats were then acquired through the thorax. For radiation dose reduction, the following was used: automated exposure control, adjustment of mA and/or kV according to patient size. COMPARISON: None. FINDINGS: Image quality: Excellent. Pulmonary arteries: Pulmonary arteries are normal in size, and demonstrate no intraluminal filling defects to suggest central pulmonary embolism. Lungs and pleura: There is a 24 mm diameter fat containing left posterior hemidiaphragmatic hernia. Within the left lung base posteriorly, there is a 10 mm diameter nodule. Mild patchy dependent bilateral lower lobe opacities are present. There is a cavitary 7 mm diameter nodule within the superior segment right lower lobe. There is a cavitary 11 mm diameter nodule within the superior segment left lower lobe. No pleural effusions or pneumothorax. Central and peripheral airways are patent. Mediastinum: Heart size is normal, without pericardial effusion. No mediastinal or hilar adenopathy. Thoracic aorta is normal in caliber and enhancement. Esophagus is normal in caliber. There is a moderate hiatal hernia. Bones and chest wall: No suspicious bony lesions. Ribs and thoracic spine appear intact throughout. Thyroid gland is within normal limits. No axillary or supraclavicular adenopathy. Abdomen: Visualized portions of the upper abdomen demonstrate a nodular hepatic contour, suggestive of cirrhosis. Periesophageal collateral vessels are present. IMPRESSION: 1. No pulmonary embolus. 2. Bilateral lower lobe pneumonia. 3. Superimposed nodular densities within the bilateral lower lobes, some of which are cavitary; differential considerations include atypical microbacterial or fungal infection, septic emboli, and malignancy. Clinical assessment is recommended. Imaging followup is recommended as below. 4. Moderate hiatal hernia. 5. Cirrhosis and portal hypertension. Fleischner Society criteria for SOLID lung nodule followup. Nodule size (mm)Low-risk patientHigh-risk [id number] follow-up neededFollow-up at 12 mo; if no change, no further follow-up>[id number] CT at 12 mo; if no change, no further follow-up needed.Initial follow-up CT at 6-12 mo, then 18-24 mo if no change. >6-8Initial follow-up CT at 6-12 mo, then 18-24 mo if no change. Initial follow-up CT at 3-6 mo, then 9-12 mo and 24 mo if no change. > 8Follow-up CT at 3, 9, 24 mo. Or PET and/or biopsy.Same as for low-risk pts. Dictated by: Gian Mcgarry M.D. on 04/14/2016 at 15:06 Approved by: Gian Mcgarry M.D. on 04/14/2016 at 15:06 Cardiac Echo Impression Echocardiogram Report Name: ADARSH DUNLAP Study Date: 04/15/2016 Height: 67 in Hospital Exam Location: [facility] Weight: 160 lb Gender: Male BSA: 1.8 m2 : 1950 Age: 65 yrs BP: 153/97 mm Hg Reason For Study: COPD Ordering Physician: HOSPITALIST [facility] Performed By: Dolly Ordonez Referring Physician: Dr. Red Sawant Interpretation Summary The left ventricle is not well visualized but grossly appears normal in size with normal left ventricular wall thickness. Left ventricular systolic function is probably normal with the ejection fraction roughly estimated to be 60-65% without obvious focal wall motion abnormalities noted but poor endocardial definition reduces the sensitivity for the detection of such. The E/A ratio is reversed, suggesting impaired early relaxation of the left ventricle or a reduced preload state. The right ventricle is not well visualized but grossly appears normal in size with probable normal systolic function. Pulmonary artery pressures cannot be estimated because of the lack of a measurable TR jet velocity. Left atrial size is normal and the right atrium not visualized. There is no obvious significant valvular heart disease. The ascending aorta is mildly enlarged. Brief History 65 year old male with history of COPD/emphysema, active smoker, meth user, alcohol abuse and medication non-compliance presents with report of 3 days of acute generalized weakness, body aches, productive cough, chills and worsening shortness of breath. On presentation to ED he was reported to be in respiratory distress but after receiving IV Solu-Medrol and DuoNeb his breathing significantly improved. Workup in ED is also notable for positive Flu A. patient was admitted to the [facility] 65 year old male with history of COPD/emphysema, active smoker, meth user, alcohol abuse and medication non-compliance presents with report of 3 days of acute generalized weakness, body aches, productive cough, chills and worsening shortness of breath. # Acute COPD exacerbation, likely brought on by acute influenza A, present at the time of admission. ongoing, however beginning to improve over the last 72 hours. -CT scan of the chest reveals bilateral lower lobe nodular pneumonia with some cavitary disease. Etiology is uncertain. -We we have obtained pulmonary consultation and infectious disease consultation. Dr. Francois was kind enough to see the patient today and his differential diagnosis includes: "The differential diagnosis here is broad and includes such possibilities as lung cancer, Lucy's granulomatosis, bacterial process with Staph or Pseudomonas (which I doubt given his lack of toxicity), right-sided endocarditis with septic emboli (which I also doubt based on lack of toxicity), actinomycosis or Nocardia, mycobacterial infection, fungal infection such as cryptococcosis, coccidioidomycosis, or histoplasmosis, or even pneumocystis carinii pneumonia (PCP)." -Patient has no signs or symptoms of infection with no fever, or further chills. Patient did have diaphoresis when he could not expectorate phlegm but normally has not had any diaphoresis. He does have a cough. He continues to have significant shortness of breath. However, hypoxia. Has improved -We will continue azithromycin for 5 more days, as this may help his COPD as well as an atypical infection. We will continue in PO form. Patient is having some dysphagia and may have difficulty swallowing a large pill. -We asked respiratory therapy to induce a sputum for sputum Gram stain C& S. However, the specimen was deemed inadequate due to predominance of epithelial cells and was discarded. - Continue on PO prednisone 40 mg a day until ready to discharge and then will begin tapering. - Continue on DuoNeb qid while awake and Albuterol prn - Continue supportive care and O2 NC -Dr. Francois has recommended the following testing: "Additional labs to be done here include an ANCA, blood cultures x2, crypto antigen, cocci antibodies, and histo urine antigen. Additional serologies here will include an HIV." - The HIV test was negative -Discussed with Dr. Vic Feliciano in pulmonary consultation and he agrees with current treatment plan. # Dysphagia -Speech therapy has evaluated the patient today is determined the patient does have difficulty with thin liquids and will give the patient a nectar thick diet patient is very pleased with this plan and will comply. # Acute influenza A - patient has completed Tamiflu x 10 days. Day 10 of 10. # Hypertension, chronic. poorly controlled at home - Lisinopril dose was increased - Will continue on Labetalol -started this admission # Acute on chronic respiratory failure with hypoxia -Likely is secondary to pulmonary process as described above with COPD exacerbation. -Rule out hypertensive cardiomyopathy due to noncompliance with blood pressure medications at home -However echocardiogram fails to reveal any significant abnormalities # Hyponatremia, presumed acute, present on admission. Likely pre-renal and due to meds (Hctz). improved with IVF - Continue to hold HCTZ - Now resolved # History of alcohol abuse - denies any history of withdrawals or seizures - currently no evidence of withdrawal - Continue on CIWA protocol as needed # History of Hep C - Patient says finished course of treatment in the past - Patient will need further f/u by PCP and GI as outpatient # History of Meth use patient states he used to smoke it but that bothered his COPD so now he snorts it while he is drinking beer - Continue supportive care -Recommend substance abuse counseling -Counseled patient and he agrees that he needs to quit and may do so after this frightening experience # History of tobacco use - pt advised about quitting - nicotine patch daily prn Dispo: As discussed with Dr. Francois of infectious disease and from his standpoint the patient is cleared to go home. Patient was able to ambulate around his room approximately 30 feet with physical therapy today. 3 nursing homes have declined to take care of him due to his history of methamphetamine use. Patient intends on going home with his sister Ирина was willing to take care of him at home. She is a physical therapist. Patient had promised her that he would no longer do methamphetamine or drink alcohol. We will DC home with patient's sister Ирина today. Ирина stated to me that one of her sisters is going to stay with the patient and help take care of him. Exam Vital Signs (Last) Date Time Temp Pulse Resp B/P Pulse Ox O2 Delivery O2 Flow Rate FiO2 04/19/16 16:26 82 20 94 Nasal Cannula 2.00 04/19/16 14:43 36.4 154/97 Exam General: Patient is sitting up in bed. He appears comfortable again today HEENT: Head is atraumatic normocephalic. Eyes: Pupils are equally round and reactive to light and accommodation. Extraocular muscles are intact. Sclera are white anicteric. Subconjunctival mucosa is pink. Ears and nose are unremarkable. Oropharynx: There are no new mucosal lesions, there is no thrush , there is no pharyngitis. Neck: Is supple, there are no nodes, or masses or tenderness. Chest: Is clearer to auscultation and percussion. There are decreased breath sounds. There are no rales, and no rhonchi, wheezes or rubs. Heart: Rate, rhythm is regular. There is no new murmur, rub or gallop. Abdomen: Good bowel sounds are present. Abdomen is soft, nontender, no organomegaly or masses were appreciated. Extremities: Are symmetrical and well perfused. There is no edema, there is no cellulitis, no rash. Neurologic: There are no focal neurological deficits. Cranial nerves II through XII are intact. There are no sensory or motor deficits. Psychiatric: Patients mood is calm and he is much more comfortable today. Genital: Deferred Rectal: Deferred Test 04/09/16 11:21 04/09/16 17:22 04/10/16 05:00 12/29/16 08:15 Troponin T < 0.010ug/L (0.0-0.011) Pro-B-Type Natriuretic Peptide 301.6pg/mL (0-210) Hold Oliveros Top Tube Received (Received) Hold Urine Received (Received) Prothrombin Time 12.0sec (8.1-12.5) Prothromb Time International Ratio 1.12ratio Activated Partial Thromboplast Time 31.0sec (22.8-33.0) Hepatitis C RNA Qualitative (PCR) Positive (Negative) Test 04/15/16 15:30 04/15/16 17:15 04/17/16 05:05 04/19/16 05:12 Angiotensin Converting Enzyme < 15U/L (14-82) Coccidioides Antibody Negative (Neg:<1:1) Cryptococcus Antigen Negative (Negative) HIV (1&2) Ag and Ab, 4th Generation Non reactive (Non Reactive) Urine Legionella pneumophilia Ag Negative (Negative) Procalcitonin < 0.05ng/mL (See Comment) White Blood Count 13.4th/mm3 (3.8-10.1) Red Blood Count 4.47mil/mm3 (4.40-5.80) Hemoglobin 13.6g/dL (13.8-17.2) Hematocrit 42.3% (41.0-50.0) Mean Corpuscular Volume 94.6fL (81-100) Mean Corpuscular Hemoglobin 30.4pg (27.0-35.0) Mean Corpuscular Hemoglobin Concent 32.2% (32.0-37.0) Red Cell Distribution Width 13.0% (12.3-15.4) Platelet Count 201bil/L (150-400) Neutrophils (%) (Auto) 81.3% (40-74) Lymphocytes (%) (Auto) 7.9% (14-46) Monocytes (%) (Auto) 9.5% (4-12) Eosinophils (%) (Auto) 0.6% (0-5) Basophils (%) (Auto) 0.1% (0-3) Sodium Level 137mEq/L (134-144) Potassium Level 3.8mEq/L (3.5-5.2) Chloride Level 96mEq/L (97-108) Carbon Dioxide Level 31mmol/L (18-29) Blood Urea Nitrogen 13mg/dL (8-27) Creatinine 0.63mg/dL (0.76-1.27) Estimat Glomerular Filtration Rate 136mL/min (>59) Glucose Level 99mg/dL (60-99) Calcium Level 8.9mg/dL (8.5-10.1) Magnesium Level 1.8mg/dL (1.6-2.6) Total Bilirubin 0.5mg/dL (0.0-1.2) Aspartate Amino Transf (AST/SGOT) 30U/L (0-50) Alanine Aminotransferase (ALT/SGPT) 39U/L (0-44) Alkaline Phosphatase 86U/L (25-160) Total Protein 6.4g/dL (6.4-8.4) Albumin 3.0g/dL (3.4-5.0) Test 04/19/16 13:40 Discharge Medications Discharge Medications ([Thiamine]) 100 MG TABLET 100 MG PO DAILY Prescribed by: KENIA MEDINA MD Azithromycin (Zithromax) 250 Mg Tablet 500 MG PO DAILY Prescribed by: KENIA MEDINA MD Budesonide/Formoterol 160-4.5 mcg Inh (Symbicort 160-4.5 mcg Inh) 120 Puff Inhaler 2 PUFF INHALATION BID (Reported) Budesonide/Formoterol 160-4.5 mcg Inh (Symbicort 160-4.5 mcg Inh) 120 Puff Inhaler 1 PUFF INHALATION BID Prescribed by: KENIA MEDINA MD Bupropion ER (Bupropion ER) 150 Mg Tablet.er 150 MG PO BID (Reported) Bupropion ER (Wellbutrin XL) 150 Mg Tab.er.24h 150 MG PO BID Prescribed by: KENIA MEDINA MD Fluticasone Propionate (Flonase Allergy Relief) 50 Mcg/Actuation [place].susp 1 SPRAY NA DAILY (Reported) Guaifenesin (Guaifenesin ER) 600 Mg Tab.er.12h 600 MG PO BID (Reported) Guaifenesin (Mucinex) 600 Mg Tablet.er 600 MG PO BID Prescribed by: KENIA MEDINA MD Labetalol (Labetalol) 100 Mg Tablet 100 MG PO BID Prescribed by: KENIA MEDINA MD Lisinopril (Lisinopril) 10 Mg Tablet 10 MG PO DAILY (Reported) Lisinopril (Zestril) 10 Mg Tablet 10 MG PO BID Prescribed by: KENIA MEDINA MD Omeprazole Magnesium (Prilosec Otc) 20 Mg Tablet.dr 20 MG PO BIDAC (Reported) Prednisone (Deltasone) 20 Mg Tablet 30 MG PO DAILY Prescribed by: KENIA MEDINA MD Prednisone (PredniSONE) 20 Mg Tablet 20 MG PO DAILY Start after 30mg dose complete Prescribed by: KENIA MEDINA MD Prednisone (PredniSONE) 10 Mg Tablet 10 MG PO DAILY Start after the 20mg dose is complete Prescribed by: KENIA MEDINA MD Prednisone (PredniSONE) 5 Mg Tab 5 MG PO DAILY Please start after the 10mg dose is complete Prescribed by: KENIA MEDINA MD Vit#96/Ferrous Fum/FA ( Tablet) 1 Each Tablet 1 TABLET PO DAILY Prescribed by: KENIA MEDINA MD Tiotropium [place] (Spiriva) 18 Mcg Cap.w.dev 18 MCG IH DAILY (Reported) As needed Albuterol HFA (Proair HFA) 8.5 Gm Hfa.aer.ad 2 PUFFS INHALATION Q4-6H PRN PRN For Shortness of Breath (Reported) Albuterol Neb Soln (Albuterol Neb Soln) 2.5 Mg/3 Ml Vial.neb 2.5 MG NEB Q2H PRN PRN For Shortness of Breath (Reported) Alprazolam (Alprazolam) 0.5 Mg Tablet 0.5 MG PO TID PRN PRN For Anxiety or Agitation Prescribed by: KENIA MEDINA MD Clobetasol Propionate/Emoll (Clobetasol Emollient 0.05% Crm) 15 Gm Cream..g. 1 APPL TOP BID PRN PRN psoriasis (Reported) Oxycodone (Roxicodone) 5 Mg Tablet 5 MG PO Q4-6H PRN PRN For Pain (Reported) Polyethylene Glycol 3350 (Miralax) 17 Gm Powd.pack 17 GM PO DAILY PRN PRN For Constipation Prescribed by: KENIA MEDINA MD Followup Plan Disposition: Patient is going home with this sister Ирина and he is to live at her house. Discharge Diet: Heart Healthy Discharge Activity: No restrictions (May increase activity gradually as tolerated.) Follow-up Provider: Thai De La Torre MD Follow-up with PCP in: 1 week Provider: Arvind Francois MD Follow-up in: 2 weeks Mid-level Provider: Keegan Bautista MD Follow-up with Mid-level in: 4 weeks (For Hepatitis C evaluation and treatment) Time spent Time spent on discharging this patient was greater than 35 minutes, over half of which was involved in counseling and coordination of care. Luis Alberto Medina MD Apr 19, 2016 17:09
--- NOTE | 2016-04-19 17:17 | NUR ---
Discharge: Patient discharged to home @ approx 1715. IV d/c'd intact. Reviewed new prescriptions, home medication list, d/c instructions, and follow up appointments w/patient and patient sister. Verbalized understanding. RT provided O2 tank for transport home. Personal belongings sent home w/patient. Patient escorted to main entrance via wheelchair accompanied by [employer] and sister.
--- NOTE | 2016-04-19 21:22 | PROG NOTE ---
[address] [address] PROGRESS NOTE PATIENT: ADARSH DUNLAP : 1950 MR#: [id number] ADMIT: 04/09/2016 JOB ID: [id number] DATE: 04/19/2016 REASON FOR FOLLOWUP: Influenza, advanced COPD, and bilateral pulmonary nodules, some with cavitation. INTERVAL HISTORY: Over the weekend, the patient has improved somewhat. He remained short of breath, but it is much better than it was a few days ago. He has been consistently without fevers, chills, or sweats and reports his breathing is somewhat more comfortable on nasal oxygen. He has been able to walk around the room just a little bit with assistance. Current plans are for him to go home with his sister in the near future. He denies fevers, chills, or sweats. Minimal cough. PHYSICAL EXAMINATION: Physical exam reveals a consistently afebrile gentleman, temp 36.5. His pulse 83, respiratory rate 20, blood pressure 157/90, saturating well on 2 L. Mental status is clear. Overall appearance is better than late last week. Oral cavity is relatively negative. Lungs with decreased breath sounds bilaterally. Occasional wheeze. Cardiac tones: Regular rate and rhythm. Abdomen negative. DATA: Labs include white count 13.4, but of course he is on prednisone. Creatinine 0.63. LFTs normal. Procalcitonin 0 times two. ANCA is pending. Cocci antibodies negative. Crypto antigen negative. HIV negative. Urine histo antigen was canceled, and I am not certain by whom, so I re-ordered it. Blood cultures negative, MRSA screen negative. Pneumococcal and Legionella urine antigens negative. IMAGING: Includes a CT of the which showed the small nodular and sometimes cavitary lesions. IMPRESSION: 1. This patient is obviously much improved though still quite fragilely compensated in terms of his severe chronic obstructive pulmonary disease with ongoing cigarette and methamphetamine smoking. He also has chronic active hepatitis C as evidenced by his positive PCR. He may indeed have cirrhosis as well. His influenza seems improved with oseltamivir and we are uncertain as to what the cause of the pulmonary nodules is at this point. The differential diagnoses have narrowed a bit with some negative serologies but still includes lung cancer, Lucy's, Actinomycosis, Nocardia, mycobacterial infection or vasculitis. Histoplasmosis was also a remote possibility. 2. This case was discussed this morning with Dr. Medina. 3. It seems most appropriate to send the patient out on azithromycin for his chronic obstructive pulmonary disease. He has now completed a course of oseltamivir and this could reasonably be discontinued at any time. 4. Multiple studies are still pending including the ANCA, urine histo antigen, and QuantiFERON Gold; but these can be followed up as an outpatient. 5. Infectious Disease will go ahead and sign off at this time. Thank you very much.
[2016-04-21 14:08] LABS: Antiproteinase 3 (PR-3) Abs <3.5 U/mL (0.0-3.5); Perinuclear (P-ANCA) <1:20 titer (Neg:<1:20)
== END 2016-04-19 17:09 | disposition home health service (06) | DRG 193 ==
LOC: EDBD 11:08 → SED 11:08 → MPC 12:44
PROVIDERS: ADMIT Internal Medicine; ATTEND Internal Medicine
DX: J10.1 Influenza due to other identified influenza virus with other respiratory manifestations (principal); J96.21 Acute and chronic respiratory failure with hypoxia; J44.1 Chronic obstructive pulmonary disease with (acute) exacerbation; E87.1 Hypo-osmolality and hyponatremia; F17.210 Nicotine dependence, cigarettes, uncomplicated; I10 Essential (primary) hypertension; F15.90 Other stimulant use, unspecified, uncomplicated; F10.10 Alcohol abuse, uncomplicated; Z91.14 Patient's other noncompliance with medication regimen; F12.90 Cannabis use, unspecified, uncomplicated; R13.10 Dysphagia, unspecified; J98.4 Other disorders of lung; K74.60 Unspecified cirrhosis of liver; B18.2 Chronic viral hepatitis C

== ENCOUNTER 2016-10-21 08:53 | Day surgery (SDC) | payer MEDICARE ==
[~2016-10-21] VITALS: Ht 170.2 cm; Wt 85.3 kg
[~2016-10-21 08:53] MED LIST: ALBU2.5V4 NEB; ALPR0.5T8 PO; BUPR150T12 PO; CLOB15CR3 TOP; FLUT9.9S; GUAI600T2 PO; LABE100T4 PO; LISI-610 PO; LISI10TA PO; Lactated Ringer's 1,000 ML IV ONE; OMEP20TA24 PO; POLY17PO6 PO; PRED-508 PO; PREN1TAB25 PO; SYMINH INHALATION; THIA100T64 PO; TIOT18CA3 IH
[2016-10-21] MEDS ORDERED: Propofol 10,000 mCg/mL 20 mL Inj ONE (08:54)
[2016-10-21 10:31] VITALS: BP 133/66; PULSE 68; O2SAT 97
--- NOTE | 2016-10-21 10:51 | PCM.HPANE ---
Patient Data Surgeon Admitting Provider: Attending Provider:Holden Singh MD Primary Care Physician:Red Sawant MD Other Provider:Jb Otto Anesthesia Reason for Visit Portal Hypertension Ht/WT & BMI Height (Feet): 5 Height (Inches): 7 Weight (Kilograms): 85.28 Body Mass Index 29.00 Allergies Coded Allergies: No Known Allergies (Unverified , 04/09/16) Past Anesthesia History Anesthesia History: Denies:: Abnormal Airway, Anesthesia Reactions, Difficult Intubation, Fam Anesthesia Reaction, Fam Malignant Hypertherm, Malignant Hyperthermia Diabetes History Hx Diabetes?: No MRSA MRSA: No Medications Home Meds Incl Beta Meliton: No Active Scripts Alprazolam 0.5 Mg Tablet0.5 Mg PO TID PRN For Anxiety or Agitation #20 TABLET Prov:Luis Alberto Medina MD 04/19/16 Lisinopril (Zestril)10 Mg Uofogh78 Mg PO BID #30 TABLET Prov:Luis Alberto Medina MD 04/19/16 Vit#96/Ferrous Fum/FA ( Tablet)1 Each Tablet1 Tablet PO DAILY # 30 TABLET Prov:Luis Alberto Medina MD 04/19/16 Labetalol 100 Mg Zvfhmy832 Mg PO BID #60 TABLET Prov:Luis Alberto Medina MD 04/19/16 Reported Medications Albuterol Neb Soln 2.5 Mg/3 Ml Vial.neb2.5 Mg NEB Q2H PRN For Shortness of Breath 04/09/16 Omeprazole Magnesium (Prilosec Otc)20 Mg Tablet.dr20 Mg PO BIDAC 04/09/16 Budesonide/Formoterol 160-4.5 mcg Inh (Symbicort 160-4.5 mcg Inh)120 Puff Inhaler2 Puff INHALATION BID 04/09/16 Bupropion ER 150 Mg Tablet.er150 Mg PO BID Ref 0 04/09/16 Fluticasone Propionate (Flonase Allergy Relief)50 Mcg/Actuation [place].susp1 [place] NA DAILY 04/09/16 Tiotropium [place] (Spiriva)18 Mcg Cap.w.dev18 Mcg IH DAILY 04/09/16 Clobetasol Propionate/Emoll (Clobetasol Emollient 0.05% Crm)15 Gm Cream..g.1 Appl TOP BID PRN psoriasis 04/09/16 Discontinued Reported Medications Thiamine Mononitrate (Vitamin B-1)100 Mg Betbzu216 Mg PO DAILY 10/20/16 Lisinopril 10 Mg Jfzuwg85 Mg PO DAILY 04/09/16 Oxycodone (Roxicodone)5 Mg Tablet5 Mg PO Q4-6H PRN For Pain 04/09/16 Guaifenesin (Guaifenesin ER)600 Mg Tab.er.94s803 Mg PO BID 04/09/16 Albuterol HFA (Proair HFA)8.5 Gm Hfa.aer.ad2 Puffs INHALATION Q4-6H PRN For Shortness of Breath 04/09/16 Discontinued Scripts Guaifenesin (Mucinex)600 Mg Tablet.er600 Mg PO BID #60 Prov:Luis Alberto Medina MD 04/19/16 Prednisone (Deltasone)20 Mg Dmwdor30 Mg PO DAILY #5 TABLET Prov:Luis Alberto Medina MD 04/19/16 Polyethylene Glycol 3350 (Miralax)17 Gm Powd.pack17 Gm PO DAILY PRN For Constipation #30 Prov:Luis Alberto Medina MD 04/19/16 Budesonide/Formoterol 160-4.5 mcg Inh (Symbicort 160-4.5 mcg Inh)120 Puff Inhaler1 Puff INHALATION BID #1 INHALER Ref 0 Prov:Luis Alberto Medina MD 04/19/16 Bupropion ER (Wellbutrin XL)150 Mg Tab.er.57l827 Mg PO BID #60 TABLET Ref 0 Prov:Luis Alberto Medina MD 04/19/16 Prednisone (PredniSONE)5 Mg Tab5 Mg PO DAILY #5 TABLET Ref 0 Please start after the 10mg dose is complete Prov:Luis Alberto Medina MD 04/19/16 Prednisone (PredniSONE)10 Mg Aersbz80 Mg PO DAILY #5 TABLET Ref 0 Start after the 20mg dose is complete Prov:Luis Alberto Medina MD 04/19/16 Prednisone (PredniSONE)20 Mg Wldijo00 Mg PO DAILY #5 TABLET Ref 0 Start after 30mg dose complete Prov:Luis Alberto Medina MD 04/19/16 [Thiamine] (Vitamin B1)100 MG TABLET No Conflict Wsoar518 Mg PO DAILY 30 Days Prov:Luis Alberto Medina MD 04/19/16 Azithromycin (Zithromax)250 Mg Fooumc639 Mg PO DAILY #5 TABLET Prov:Luis Alberto Medina MD 04/19/16 History History of ENT Problems?: No HEENT History: Denies:: Abnormal Airway Cataracts Difficult Intubation Dysphagia Hearing Problem Sinus Problem Denture Type: None Teeth Condition: Within Normal Limits Hx of Heart Problems?: Yes Cardiovascular History: Positive for:: Hypertension Denies:: AICD Atrial Fibrillation Cardiac Surgery Chest Pain Congestive Heart Failure Edema Heart Murmur Irregular Heartbeat Pacemaker Thrombophlebitis Valvular Heart Disease Other History/Comments Well controlled HTN, Cardiac ROS negative Hx of Respiratory Problem?: Yes Respiratory History: Positive for:: COPD (uses inhalers) Dyspnea Emphysema Pneumonia Denies:: Asthma Chest Surgery Hemoptysis Tuberculosis Other History/Comment ROS negative, good activity level Hx Neurologic Problems?: Yes Neurological History: Positive for:: CVA Dizziness (with coughing) Headaches Denies:: Alzheimer's Disease Dementia Parkinson's Disease Seizures Hx of GI Problems?: Yes Gastrointestinal History: Positive for:: Cirrhosis Other History/Comment Hep c with ? history of cirrohsis Hx of Problems?: No Genitourinary History: Denies:: HX of Hemodialysis Kidney Stones Urinary Tract Infection HX of Peritoneal Dialysis: No Male Hx: Denies:: Prostate Problems Scrotal Mass Testicular Surgery Hx Musculoskeletal Problems?: No Musculoskeletal History: Denies:: Back Injury Joint Replacement Musculoskeletal Trauma Hx of Psycho/Social Problems?: Yes Psycho Social History: Positive for:: Anxiety Hx Depression Denies:: Bipolar Disorder Suicide Attempt Hx Surgeries?: No Hx Any Other Health Problems?: No Other History: Positive for:: Hospitalization (pneumonia) Denies:: Cancer Thyroid Disease History Blood Transfusions: Denies:: Blood Transfuse Reaction Blood Transfusions Hx Diabetes: No Other History/Comment History of drug abuse Hx Alcohol Use: NoHx Substance Use: Yes (snorts meth, marijuana) Smoking Status: Former Smoker Have You Smoked inLast 12 mo: Yes Stop/Bang Treated for Sleep Apnea?: No Do You Have a CPAP Machine?: No S-Snoring: Do You Snore Loudly: Yes T-Tired: feel tired, fatigued: No O-Obsered: Observed not breath: Yes P-Blood Pressure: treated: Yes B- Body Mass Index > 35 kg/m2: Yes A- Age over 50: Yes N- Neck Large Circumference: Yes G- Gender Male: Yes MANI Total Score: 7 Risk Assessment Category Category 1A: Patient has history of documented sleep apnea, and HAS NOT received any narcotic, sedative or anesthesia administration during this stay. Category 1B: Patient has history of documented sleep apnea, and HAS received any narcotic , sedative or anesthesia administration during this stay Category 2: Patient has SUSPECTED Obstructive Sleep Apnea, and HAS received any narcotic , sedative or anesthesia administration during this stay. Category 3: Patient has SUSPECTED Obstructive Sleep Apnea and HAS NOT received narcotic, sedative or anesthesia administration during this stay. Category 4: Outpatient in Procedural Areas with known sleep apnea or who screen positive for High Risk via the STOP/BANG questionnaire. Exam Exam Vital Signs Vital Signs Date Time Temp Pulse Resp B/P Pulse Ox O2 Delivery O2 Flow Rate FiO2 10/21/16 10:31 68 133/66 97 Room Air General Appearance: Alert, Oriented X3, Cooperative, No Acute Distress HEENT/AIRWAY: MP 2 Lungs: Clear to Auscultation Heart: Exam Unremarkable Plan Impression Patient chart reviewed, patient interviewed and anesthestic plan with risks, benefits, and alternatives discussed, and informed consent obtained. ASA Physical Status: ASA3 Severe Disease Anesthetic Plan: TIVA Bene/Risks/Altern/Consents: Yes HP Complete Prior to Induction: Yes Yasmani Fernandez MD Oct 21, 2016 10:51
[2016-10-21 11:13] VITALS: BP 143/83; PULSE 70; RESP 16; O2SAT 98
--- NOTE | 2016-10-21 11:17 | PCM.ANEP1 ---
Post Anesthesia PACU Phase 1 Assessment Vital Signs Vital Signs Date Time Temp Pulse Resp B/P Pulse Ox O2 Delivery O2 Flow Rate FiO2 10/21/16 11:13 36.3 70 16 143/83 98 Room Air 10/21/16 10:31 68 133/66 97 Room Air Anesthetic Administered: TIVA Level of Alertness: Awake, talking CARRASCO's with Equal Strength: Yes Pain: No Nausea or Vomiting: No CV Function & Hydration Stable: Yes Airway Device: Oxygen Delivery: Nasal Cannula Lungs: Clear to Auscultation Dermatome Level: Full Sensation PACU Phase 2 Assessment Complications: No Follow up Care: No Patient Instructions Provided: N/A Yasmani Fernandez MD Oct 21, 2016 11:17
[2016-10-21 11:24] VITALS: BP 128/82; PULSE 71; RESP 16; O2SAT 99
[2016-10-21 11:30] VITALS: BP 160/92; PULSE 66; RESP 16; O2SAT 99
--- NOTE | 2016-10-21 12:19 | ENDO ---
[address] [address] ENDOSCOPY PROCEDURE PATIENT: ADARSH DUNLAP : 1950 MR#: [id number] ADMIT: 10/21/2016 JOB ID: [id number] DATE OF SERVICE: 10/21/2016 PROCEDURE PERFORMED: Esophagogastroduodenoscopy. INDICATION: Variceal screening. ASA CLASSIFICATION, MALLAMPATI SCORE AND MEDICATIONS: The patient's ASA classification, Mallampati score and medications as per Dr. Ad Fernandez's anesthesia report. INSTRUMENT USED: [id number]. PROCEDURE DETAILS: After informed consent was obtained, the patient was brought into the GI suite, where he was placed on oxygen via nasal cannula and monitored with continuous pulse oximeter, telemetry, and blood pressure monitoring. A time-out was performed. Then, he was placed in the left lateral decubitus position, and medications were administered for sedation. A bite block was placed. A standard EGD scope was inserted through the bite block and advanced under direct visualization to the second portion of the duodenum without difficulty. FINDINGS: 1. Normal appearing duodenal bulb, first and second portions. 2. Normal appearing pylorus, antrum and gastric body. 3. Retroflexed views in the gastric body revealed normal appearing cardia and fundus. A small hiatal hernia was appreciated. 4. The diaphragmatic hiatus was at approximately 40 cm, and the squamocolumnar junction was at approximately 36 cm. Arising from the squamocolumnar junction extending up approximately 1 cm to 35 cm was a short tongue of salmon-colored mucosa suggestive of Wyman's. A single biopsy was obtained. The remainder of the esophageal exam was otherwise unremarkable. 5. No esophageal or gastric varices were seen on today's exam. IMPRESSION: 1. Hiatal hernia. 2. 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 RECOMMENDATIONS: 1. Reflux precautions. 2. Await biopsy results. 3. Follow up in GI clinic. COMPLICATIONS: None. ESTIMATED BLOOD LOSS: Less than 5 mL.
--- NOTE | 2016-10-28 09:30 | PATH ---
SURGICAL PATHOLOGY Attending Physician:Luly Silva CASE STATUS: Signed Out PATIENT NAME: ADARSH DUNLAP PID: [id number] : 1950 DATE COLLECTED:10/21/2016 00:00 SPECIMEN: Esophagus, Biopsy CLINICAL HISTORY: 1). DISTAL ESOPHAGUS BIOPSY FINAL DIAGNOSIS: Distal Esophagus, Biopsy: Squamocolumnar junctional mucosa with no diagnostic abnormality. Negative for intestinal metaplasia. Negative for dysplasia and malignancy. ICD10: K20.9 GROSS DESCRIPTION: Received one formalin-filled container, labeled with the patient' s name and labeled "distal esophagus". The specimen consists of two portions of tissue which aggregate to 0.2 x 0.2 x 0.2 cm. The specimen is entirely submitted in one cassette. ([id number]) ICD-9 CODES: CPT CODES: 1: 27403 Electronically Signed Out Aracely Hart MD [facility] [address], [place] [address] Technical component performed at [facility], [address] [place] [address] Ave[address], [address]
== END 2016-10-21 23:59 | disposition home or self-care (01) ==
LOC: END 08:53
PROVIDERS: ATTEND Internal Medicine Gastroenterology
DX: B18.2 Chronic viral hepatitis C (principal); K76.6 Portal hypertension; K44.9 Diaphragmatic hernia without obstruction or gangrene; Z79.52 Long term (current) use of systemic steroids; Z87.891 Personal history of nicotine dependence
CPT/HCPCS: 43239; 88305; J7120